=== PATIENT | male | born 1960 | race Caucasian/White ===

== ENCOUNTER 2022-10-20 10:19 | Inpatient (IN) ==
--- NOTE | 2022-10-20 10:35 | Emergency Department Note ---
Impression & Plan Atrial fibrillation with RVR, Congestive heart failure, Shortness of breath, Leg swelling, Hypokalemia, Hypomagnesemia ED Provider Note NAME: SARAH MUELLER AGE: 62 SEX: M : 1960 ARRIVES VIA: Walk-In INFORMANT: Patient, ED PROVIDER(S): Sachin Cummings MD CHIEF COMPLAINT: Shortness of breath MEDICAL DECISION MAKING: Patient presents due to concern for shortness of breath ongoing since January but worse in the last 2 months with associated lower extremity edema. IV was established blood work was obtained along with an EKG. The patient was noted to be in A-fib. Lopressor ordered along with heparin. The patient's blood work shows normal white count mild anemia hemoglobin of 13.5. Platelet count is unremarkable. Kidney function unremarkable mild hypomagnesemia and hypokalemia. These were ordered for repletion. BNP is elevated along with elevated troponin but do believe this is likely secondary to demand. Patient is likely been in A-fib for some time and is had progressively worsening symptoms. I did inform the patient the findings. I spoke with the on-call hospitalist Barbara Quiñones PA-C and the patient was admitted by Dr. Wooten. Patient was also ordered Lasix 40 IV. Bilateral lower extremity DVT Dopplers pending at the time of admission. Critical Care: I have personally spent 42 minutes of critical care time in direct management of this patient. This includes bedside care, interpretation of diagnostic studies, and testing, discussion with consultants, patient, and family members, and other require inpatient management activities. This 42 minutes is in excess of all separately billable procedures. Prior /Outside records reviewed: None Differential diagnosis: Reactive airway disease, pneumonia, pneumothorax, COPD, CHF, infections, cardiac ischemia, pulmonary embolism, musculoskeletal, gastrointestinal, as well as other pathologies. Diagnostics, as interpreted by me: ECG: A-fib with RVR, rate 120, wide QRS, possible left axis deviation left bundle branch block pattern. No obvious ST elevations noted. Cardiac monitoring: An order was placed for continuous cardiac monitoring. The monitor shows a rate of 112 with tachycardic and irregularly irregular rhythm. Patient was placed on pulse oximetry Medical decision rules: None Imaging studies: See below I informed interpreted the patient's chest x-ray which does show likely pulmonary edema HPI: Patient presents from home due to concern for shortness of breath and [place]. The patient has family history of A-fib but no prior history of any heart or lung disease. Patient states that he chews tobacco and drinks socially. No history of thyroid disease heart disease or lung disease. No non-smoker. Patient has noticed worsening lower extremity swelling and associated shortness of breath of the last 2 months. Son notes that today he seemed worse in terms of his leg swelling in addition to his shortness of breath. The patient has had a nonproductive cough for many months. No falls or trauma. The patient has noticed the likely weight gain and leg swelling but is not been taking a daily weight. Patient does not take any medications on a regular basis. Remote history of ACL procedure PAST MEDICAL HISTORY: See Below PAST SURGICAL HISTORY: See Below SOCIAL HISTORY: See Below HOME MEDICATIONS: See Below ALLERGIES: See Below VITALS: See Below PHYSICAL EXAMINATION: GENERAL: NAD, wearing a mask, non-toxic. EYE EXAM: Normal conjunctiva. PERRL, no anisocoria and EOM's grossly intact w/o pain. NECK: Supple, no nuchal rigidity, no adenopathy, non-tender. No signs of meningismus. FROM of the neck with good chin to chest and neck extension. No stridor. LUNGS: Clear to auscultation. Normal chest wall mechanics. HEART: Tachycardic and irregularly irregular. ABDOMEN: Abdomen soft, non-tender, no masses, no rebound or guarding. BACK: No CVA TTP. SKIN: No rashes and no bruising. UPPER EXTREMITIES: Upper extremities are grossly normal. LOWER EXTREMITIES: Grossly normal, 2-3+ bilateral symmetric lower extremity edema with mild erythema, no crepitus negative Homans' sign bilaterally. NEURO EXAM: A&O x3, cranial nerves II-XII grossly intact, normal speech, moves all 4 extremities. Past Med/Surg History Medical History (Updated 10/21/22 @ 17:41 by Sachin Cummings MD) No pertinent past medical history Right ACL tear Surgical History (Updated 10/21/22 @ 17:40 by Sachin Cummings MD) H/O anterior cruciate ligament surgery Social History Smoking Status: Never smoker Tobacco Type: Smokeless Tobacco (Dip or Chew) Hx Alcohol Use: Yes Alcohol type: wine Alcohol type Comment: socially Hx Substance Use: No Preferred Language: Frisian Communication Ability: Effective Computer Forensics Analyst Required: No Beliefs That Will Affect Care: None Current Living Situation: Alone Feels Safe at Home: Yes Assistive Devices: None Allergies Allergies Allergy/AdvReac Type Severity Reaction Status Date / Time No Known Allergies Allergy Verified 10/20/22 11:57 Home Meds Home Medications Medication Instructions Recorded Confirmed No Known Home Medications 10/20/22 10/20/22 Results & Data (ED) Vital Signs Vital Signs - 24 hr 10/20/22 10:22 10/20/22 10:52 Temperature 36.8 C Temperature Source Temporal Artery Scan Pulse Rate 117 H Respiratory Rate 16 Respiratory Effort / Characteristics Non-Labored Spontaneous Respiratory Depth Normal Blood Pressure 178/115 H Blood Pressure Mean 136 Pulse Oximetry 97 Oxygen Delivery Method Room Air Room Air Sepsis Recent Fever Within 48 Hours No Sepsis New/Unexplained Change in Mental Status No Sepsis Action Taken by Nursing No Action Required Home Medications Current Medication List: was personally reviewed by me Laboratory Data Attestation: I reviewed the patient's lab results. 10/20/22 11:07 10/20/22 11:07 Lab Results 10/20/22 10/20/22 10/20/22 Range/Units 11:07 11:07 11:07 WBC 6.15 (4.8-10.8) K/ul RBC 4.62 L (4.70-6.10) M/uL Hgb 13.5 L (14.0-18.0) g/dl Hct 41.2 L (42.0-52.0) % MCV 89.2 (80.0-100.0) fL MCH 29.2 (25.0-34.0) pg MCHC 32.8 (32.0-36.0) g/dL RDW Std Deviation 52.3 H (36.4-46.3) fL RDW Coeff of Naomie 16.1 H (11.5-14.5) % Plt Count 242 (130-400) K/uL MPV 9.9 (9.4-12.4) fL Immature Gran % (Auto) 1.1 % Neut % (Auto) 60.2 % Lymph % (Auto) 21.6 % Bland % (Auto) 13.7 % Eos % (Auto) 3.1 % Baso % (Auto) 0.3 % Neut # (Auto) 3.70 (1.40-6.50) K/uL Lymph # (Auto) 1.33 (1.2-3.4) K/uL Bland # (Auto) 0.84 H (0.11-0.59) K/uL Eos # (Auto) 0.19 (0-0.50) K/uL Baso # (Auto) 0.02 (0-0.2) K/uL Immature Gran # (Auto) 0.07 (0.01-0.20) K/uL PT 13.0 H (9.0-12.0) Seconds INR 1.2 H (0.9-1.1) APTT 30.3 (21.0-31.0) Seconds PTT Ratio 1.1 Sodium 140 (136-145) mmol/L Potassium 3.0 L (3.5-5.1) mmol/L Chloride 98 (98-107) mmol/L Carbon Dioxide 29 (21-32) mmol/L Anion Gap 13 H (3-11) BUN 14 (6-23) mg/dl Creatinine 0.97 (0.6-1.4) mg/dl Est Cr Clr Drug Dosing 111.3 ml/min Est GFR ( Amer) 97.3 ml/min Est GFR (Non-Af Amer) 83.9 ml/min BUN/Creatinine Ratio 14.4 (10-20) Glucose 105 H (70-99(Fasting)) mg/dl Calcium 9.0 (8.6-10.3) mg/dl Magnesium 1.6 L (1.7-2.4) mg/dl Total Bilirubin 2.8 H (0.2-1.0) mg/dl AST 27 (13-39) U/L ALT 18 (7-52) U/L Alkaline Phosphatase 111 H (34-104) U/L Troponin I High Sens 39.2 H (0-20) pg/ml B-Natriuretic Peptide (0-100) pg/ml Total Protein 6.6 (6.0-8.3) gm/dl Albumin 3.7 (3.4-5.0) gm/dl Globulin 2.9 (2.5-4.0) gm/dl Albumin/Globulin Ratio 1.3 (0.9-2) TSH (0.300-4.500) uIu/ml SARS-CoV-2, RNA, NAAT (NEGATIVE) 10/20/22 10/20/22 10/20/22 Range/Units 11:07 11:16 12:14 WBC (4.8-10.8) K/ul RBC (4.70-6.10) M/uL Hgb (14.0-18.0) g/dl Hct (42.0-52.0) % MCV (80.0-100.0) fL MCH (25.0-34.0) pg MCHC (32.0-36.0) g/dL RDW Std Deviation (36.4-46.3) fL RDW Coeff of Naomie (11.5-14.5) % Plt Count (130-400) K/uL MPV (9.4-12.4) fL Immature Gran % (Auto) % Neut % (Auto) % Lymph % (Auto) % Bland % (Auto) % Eos % (Auto) % Baso % (Auto) % Neut # (Auto) (1.40-6.50) K/uL Lymph # (Auto) (1.2-3.4) K/uL Bland # (Auto) (0.11-0.59) K/uL Eos # (Auto) (0-0.50) K/uL Baso # (Auto) (0-0.2) K/uL Immature Gran # (Auto) (0.01-0.20) K/uL PT (9.0-12.0) Seconds INR (0.9-1.1) APTT (21.0-31.0) Seconds PTT Ratio Sodium (136-145) mmol/L Potassium (3.5-5.1) mmol/L Chloride (98-107) mmol/L Carbon Dioxide (21-32) mmol/L Anion Gap (3-11) BUN (6-23) mg/dl Creatinine (0.6-1.4) mg/dl Est Cr Clr Drug Dosing ml/min Est GFR ( Amer) ml/min Est GFR (Non-Af Amer) ml/min BUN/Creatinine Ratio (10-20) Glucose (70-99(Fasting)) mg/dl Calcium (8.6-10.3) mg/dl Magnesium (1.7-2.4) mg/dl Total Bilirubin (0.2-1.0) mg/dl AST (13-39) U/L ALT (7-52) U/L Alkaline Phosphatase (34-104) U/L Troponin I High Sens (0-20) pg/ml B-Natriuretic Peptide 775 H (0-100) pg/ml Total Protein (6.0-8.3) gm/dl Albumin (3.4-5.0) gm/dl Globulin (2.5-4.0) gm/dl Albumin/Globulin Ratio (0.9-2) TSH 2.090 (0.300-4.500) uIu/ml SARS-CoV-2, RNA, NAAT NEGATIVE (NEGATIVE) Administered Medications Carvedilol (Carvedilol 3.125 Mg Tab) 3.125 mg PO BIDM [facility] Stop: 11/19/22 17:14 Last Admin: 10/21/22 16:33 Dose: 3.125 mg Documented By: Admin: 10/21/22 07:59 Dose: 3.125 mg Documented By: Admin: 10/20/22 18:15 Dose: 3.125 mg Documented By: AM Furosemide (Furosemide 40 Mg/4 Ml Vial) 80 mg IV BID17 [facility] Stop: 11/20/22 16:59 Last Admin: 10/21/22 16:34 Dose: 80 mg Documented By: YOGI Potassium Chloride (Potassium Chloride Crtab 20 Meq Tabcr) 40 meq PO QAM [facility] Stop: 11/20/22 08:59 Last Admin: 10/21/22 07:59 Dose: 40 meq Documented By: YOGI Discontinued Medications Apixaban (Apixaban 5 Mg Tablet) 10 mg PO BID [facility] Stop: 10/28/22 09:01 Last Admin: 10/21/22 17:23 Dose: 10 mg Documented By: YOGI Furosemide (Furosemide 40 Mg/4 Ml Vial) 40 mg IV ONE ONE Stop: 10/20/22 11:58 Last Admin: 10/20/22 12:25 Dose: 40 mg Documented By: KIEL Furosemide (Furosemide 40 Mg/4 Ml Vial) 40 mg IV BID17 [facility] Stop: 11/19/22 16:59 Last Admin: 10/21/22 08:00 Dose: 40 mg Documented By: Admin: 10/20/22 16:24 Dose: 40 mg Documented By: AM Heparin Sodium/Dextrose (Heparin Sodium/Dextrose) 25,000 units in 500 mls @ 37 mls/hr IV .[id number] [facility]; Protocol Stop: 11/19/22 11:14 Last Admin: 10/21/22 16:54 Dose: Not Given Documented By: Admin: 10/21/22 16:54 Dose: Not Given Documented By: Titration: 10/21/22 16:53 Dose: 0 units/hr, 0 mls/hr Documented By: YOGI Co-signed By: ASHWINI Admin: 10/21/22 01:32 Dose: 1,850 units/hr, 37 mls/hr Documented By: ROGER Co-signed By: CLAUDIA Titration: 10/21/22 01:20 Dose: 1,850 units/hr, 37 mls/hr Documented By: ROGER Co-signed By: CLAUDIA Titration: 10/20/22 19:09 Dose: 1,850 units/hr, 37 mls/hr Documented By: ROGER Co-signed By: JOSE Titration: 10/20/22 18:05 Dose: 1,850 units/hr, 37 mls/hr Documented By: JOSE Co-signed By: ÁNGEL Admin: 10/20/22 11:27 Dose: 1,750 units/hr, 35 mls/hr Documented By: LISA Co-signed By: WILFRIDO Magnesium Sulfate/Dextrose (Magnesium Sulfate / D5w) 1 gm in 100 mls @ 100 mls/hr IV NOW STA Stop: 10/20/22 12:56 Last Infusion: 10/20/22 13:27 Dose: 0 mls/hr Documented By: Admin: 10/20/22 12:25 Dose: 100 mls/hr Documented By: KIEL Magnesium Sulfate/Dextrose (Magnesium Sulfate / D5w) 1 gm in 100 mls @ 50 mls/hr IV ONE ONE Stop: 10/20/22 14:17 Last Infusion: 10/20/22 17:30 Dose: 0 mls/hr Documented By: Admin: 10/20/22 15:26 Dose: 50 mls/hr Documented By: JOSE Magnesium Sulfate/Dextrose (Magnesium Sulfate / D5w) 1 gm in 100 mls @ 50 mls/hr IV ONE ONE Stop: 10/20/22 16:30 Last Infusion: 10/20/22 19:31 Dose: 0 mls/hr Documented By: Admin: 10/20/22 17:29 Dose: 50 mls/hr Documented By: AM Magnesium Sulfate/Dextrose (Magnesium Sulfate / D5w) 1 gm in 100 mls @ 50 mls/hr IV ONE ONE Stop: 10/20/22 20:14 Last Admin: 10/20/22 18:17 Dose: Not Given Documented By: AM Metoprolol Tartrate (Metoprolol Tartrate 1 Mg/Ml Vial) 5 mg IV Q5M PRN PRN Reason: Tachycardia Stop: 11/19/22 10:45 Last Admin: 10/20/22 11:26 Dose: 5 mg Documented By: LISA Potassium Chloride (Potassium Chloride Crtab 20 Meq Tabcr) 40 meq PO NOW STA Stop: 10/20/22 11:58 Last Admin: 10/20/22 12:25 Dose: 40 meq Documented By: KIEL Potassium Chloride (Potassium Chloride Crtab 20 Meq Tabcr) 40 meq PO NOW STA Stop: 10/20/22 12:18 Last Admin: 10/20/22 12:54 Dose: 40 meq Documented By: KIEL Potassium Chloride (Potassium Chloride Crtab 20 Meq Tabcr) 40 meq PO NOW STA Stop: 10/20/22 17:57 Last Admin: 10/20/22 18:15 Dose: 40 meq Documented By: AM Spironolactone (Spironolactone 25 Mg Tab) 25 mg PO NOW ONE Stop: 10/21/22 12:36 Last Admin: 10/21/22 13:11 Dose: 25 mg Documented By: MAD Imaging Data Radiologist's Impression: Chest X-Ray 10/20/22 10:46 XR chest 1V portable CLINICAL HISTORY: Dyspnea TECHNIQUE: Single frontal radiograph of the chest was obtained. Comparison: None available at the time of this dictation. FINDINGS: No lines and tubes are seen. Cardiomegaly is noted. Prominence and cephalization of the vasculature is seen. No evidence of pleural effusion or pneumothorax. IMPRESSION: Cardiomegaly and mild pulmonary edema. ACT 112: Negative or not required by law. Electronically signed by: Reed Paz M.D. 10/20/2022 11:28 AM Venous Doppler Study 10/20/22 12:00 BILATERAL LOWER EXTREMITY VENOUS DOPPLER HISTORY: Acute pain with swelling of the lower legs swelling, sob COMPARISON STUDY: None. FINDINGS: There is normal compressibility, flow, and augmentation within the bilateral lower extremity deep venous systems. Subcutaneous edema. IMPRESSION: No DVT within the right or left lower extremity. ACT 112: Negative or not required by law. Electronically signed by: Ankur Butcher M.D. 10/20/2022 3:17 PM Discharge Plan Visit Data Chief Complaint: Shortness of Breath/Dyspnea Stated Complaint: SOB, SWOLLEN LEGS ED Provider: Sachin Cummings Discharge Problem: Atrial fibrillation with RVR, Congestive heart failure, Shortness of breath, Leg swelling, Hypokalemia, Hypomagnesemia Patient Disposition: Admitted As Inpatient Discharge Instructions Interventions: ED Discharge Assessment Last Done: 10/20/22 13:37
[2022-10-20] MEDS ORDERED: Heparin IV Adult Wt-Based Standard *NO* Bolus Protocol IV ONE (10:46)
[2022-10-20] MEDS ORDERED: METOPROLOL TARTRATE 1 MG/ML VIAL IV PRN (10:46)
[2022-10-20] MEDS: HEPARIN SODIUM/DEXTROSE 25,000 UNITS/500 ML BAG IV SCH (11:27)
--- NOTE | 2022-10-20 11:30 | XRay Report ---
XR chest 1V portable CLINICAL HISTORY: Dyspnea TECHNIQUE: Single frontal radiograph of the chest was obtained. Comparison: None available at the time of this dictation. FINDINGS: No lines and tubes are seen. Cardiomegaly is noted. Prominence and cephalization of the vasculature i s seen. No evidence of pleural effusion or pneumothorax. IMPRESSION: Cardiomegaly and mild pulmonary edema. ACT 112: Negative or not required by law. Electronically signed by: Reed Paz M.D. 10/20/2022 11:28 AM
[2022-10-20 11:31] LABS: Basophils # (auto) 0.02 K/uL (0-0.2); Basophils % (auto) 0.3 %; Eosinophils # (auto) 0.19 K/uL (0-0.50); Eosinophils % (auto) 3.1 %; Hematocrit (blood only) 41.2 % (42.0-52.0); Hemoglobin 13.5 g/dl (14.0-18.0); Immature Granulocytes # (auto) 0.07 K/uL (0.01-0.20); Immature Granulocytes % (auto) 1.1 %; Lymphocytes # (auto) 1.33 K/uL (1.2-3.4); Lymphocytes % (auto) 21.6 %; Mean Corpuscular Hemoglobin 29.2 pg (25.0-34.0); Mean Corpuscular Hgb Conc 32.8 g/dL (32.0-36.0); Mean Corpuscular Volume 89.2 fL (80.0-100.0); Mean Platelet Volume 9.9 fL (9.4-12.4); Monocytes # (auto) 0.84 K/uL (0.11-0.59); Monocytes % (auto) 13.7 %; Neutrophils % (auto) 60.2 %; Platelet Count 242 K/uL (130-400); RDW Coefficient of Variation 16.1 % (11.5-14.5); RDW Standard Deviation 52.3 fL (36.4-46.3); Red Blood Count 4.62 M/uL (4.70-6.10); White Blood Count 6.15 K/ul (4.8-10.8)
[2022-10-20 11:42] LABS: Albumin Globulin Ratio 1.3 (0.9-2); Albumin Level 3.7 gm/dl (3.4-5.0); BUN Creatinine Ratio 14.4 (10-20); Bilirubin,Total 2.8 mg/dl (0.2-1.0); Creatinine Clr Calc Pharmacy 111.3 ml/min; Est GFR (African American) 97.3 ml/min; Est GFR (Non-African American) 83.9 ml/min; Globulin 2.9 gm/dl (2.5-4.0); Magnesium 1.6 mg/dl (1.7-2.4); Total Protein 6.6 gm/dl (6.0-8.3)
[2022-10-20 11:48] LABS: Troponin I High Sensitivity 39.2 pg/ml (0-20)
[2022-10-20 11:53] LABS: INR 1.2 (0.9-1.1); Partial Thromboplastin Ratio 1.1; Partial Thromboplastin Time 30.3 Seconds (21.0-31.0)
[2022-10-20] MEDS ORDERED: MAGNESIUM SULFATE / D5W 1 GM/100 ML BAG IV STA (11:57)
[2022-10-20] MEDS ORDERED: FUROSEMIDE 40 MG/4 ML VIAL IV ONE (11:57)
[2022-10-20] MEDS ORDERED: POTASSIUM CHLORIDE CRTAB 20 MEQ TABCR PO STA ×3 (11:57→17:56)
[2022-10-20] MEDS ORDERED: MAGNESIUM SULFATE / D5W 1 GM/100 ML BAG IV ONE ×3 (12:18→18:15)
--- NOTE | 2022-10-20 12:20 | History & Physical Report ---
Date of Service October 20, 2022 Assessment & Plan (1) Atrial fibrillation with RVR: Plan: Presented w/ SOB/VILLAFANA/cough, palpitations noticed last summer but not since. Has been having associated LE swelling/weight gain (however doesn't check weights at home) and notable 3+ pitting edema to his thighs bilaterally. BNP elevation to 775 without prior known hx CHF Given Lopressor 5mg IV in ER, placed on heparin gtt CHADSVASC scoring 1, but suspect higher. BP elevation 152/108, CHF suspected. Checking lipids in AM Admit to PCU Continue Heparin gtt given above trend troponin, suspect elevation 2nd to demand ischemia from Afib w/ RVR on admission. Check ECHO to r/o underlying valvular heart disease given murmur on examination Continue with diuresis with Lasix 40mg IV BID -- dosing TBD, consideration for SGLT2 vs other pending A1c check/EF on ECHO Monitor I&O, daily weights AHA diet, 2L/fluid restriction daily Cards/CHF consults placed Mag/K replacement and will repeat labs this evening/further replacement as needed Will check TSH, anemia labs as well but suspect hgb 13.5 dilutional from volume overload state Check A1c/lipid panel in AM for risk stratification Keep mag ~2, K~4 Will need assistance getting PCP appt w/ Dr Berry sooner than January given hasn't seen provider in years Monitor labs in AM (2) HTN, goal to be determined: Plan: BP elevated in ER --> no headache/CP symptoms, no PATRICIA Diuresis as above with lasix 40mg IV BID Likely will need BB/lisinopril but will hold off given acute CHF/volume overload 2nd to afib/rvr -->> added carvedilol 3.125mg BID for additional BP control given continued elevations despite IV diuretic therapy and for HR control/CHF, echo ordered and pending urine protein level checked given significant HTN --> elevated to 2.4. will put in for nephrology consult for proteinuria (3) Leg swelling: Plan: 2nd to CHF dopplers ordered by ER provider to r/o DVT but no calf tenderness/equal bilaterally will remain on heparin gtt AC likely at d/c pending above, will need CM to boudreaux check (4) Wheezing: Plan: 2nd to volume overload state diuresis as above, mag repalcement does have chewing tobacco hx/no smoking -- rec cessation. also reported snoring at night -- may benefit from ref for sleep study outpatient as well (5) Shortness of breath: Plan: 2nd to above, diuresis as outlined NO OXYGEN REQUIREMENT/HYPOXIA Monitor status w/ diuresis (6) Hypokalemia: Plan: replacement w/ 40meq by ER provider for K 3.0 --> additional 40meq ordered given lasix 40mg IV mag replacement as below, and will repeat labs this evening/additional replacement as needed to keep K~4, Mag ~2 (7) Hypomagnesemia: Plan: 1.6, 1gm IV ordered in ER, ordered additional 1gm while in ER and will order additional 1gm monitor labs/replacement as needed (8) Elevated brain natriuretic peptide (BNP) level: Plan: 2nd to above echo/chf consult/diuresis (9) BPH (benign prostatic hyperplasia): Plan: suspected, reported increased frequency/urinating q1h at night output thus far 1800mL, last void 1L and PVR 182ml monitor output/retention and consider adding medication History of Present Illness Chief Complaint: shortness of breath, LE swelling, Afib RVR Primary Care Provider: NO PCP 62yo male taking no chronic medications presented to ER with concerns for ongoing shortness of breath since January, but worsened in the past 2 months along with lower extremity edema. Family noticed that he has been having increased leg swelling in combination with his shortness of breath and has an associated nonproductive cough for several months. On admission, EKG w/ noted Afib w RVR with rates 120bpm. Lopressor 5mg IV x 1, heparin were ordered by ER provider, and venous dopplers pending to r/o DVT given swelling. Apparently there is a family history of afib but patient without known history of such personally, but had noted palpitations starting last summer with sensation of "fluttering in the chest", but denied lightheadedness/syncopal sy mptoms. He used to be a fairly active lorena but his exercise tolerance has gone down significantly with increased swelling/shortness of breath/VILLAFANA limiting his ability to lennon/golf most recently. Son at bedside, CONSUELO w/ orthopedics Michele Jaeger. Corroborates story with patient. He does endorse his father with increased shortness of breath, worsening since around Thanksgiving time with associated nonproductive cough. Patient sleeps laying on his side, states laying flat on back causes back pain but does not require several pillows to become comfortable. He notes his pants have been fitting tighter as well but that he doesn't routinely check his weights. His swelling has progressed and now having pitting edema to his thighs. He has not seen a doctor in many years, has appointment with Dr Berry in December/January, but discussed will attempt to arrange sooner. Also discussed likely need for anticoagulation and will have boudreaux check eliquis vs xarelto, checking ECHO to evaluate for valvular heart disease as well. He is on no medications at present. No abdominal pain/diarrhea or intolerance to fatty foods and states he does try and eat healthy but that his appetite has been decreased. No hx JARED, but son does endorse he does snore. Family history: afib, DM, no sudden cardiac deaths Social history: Does drink socially, no heavy use reported. Chewing tobacco about 1/2 can every other day to a can Q2D. Rec cessation. ER Course: CXR w/ cardiomegaly and evidence for volume overload. BNP elevated to 775. Trop 39.2 on initial check, patient denies any chest pain. K 3.0, mag 1.6. Has been given Lasix 40mg IV x 1 with 40meq PO KCl. Magnesium level checked and 1.6, IV replacement ordered with 1gm thus far. ER provider started on Heparin gtt to cover for afib. Discussed admission to hospital for diuresis, monitoring on telemetry, echo, cardiology consultation/CHF clininc in follow up and getting him PCP appointment arranged sooner. TSH added to AM labs, and will continue lasix 40mg IV BID. Allergies Allergy/AdvReac Type Severity Reaction Status Date / Time No Known Allergies Allergy Verified 10/20/22 11:57 Home Medications Medication Instructions Recorded Confirmed Type No Known Home Medications 10/20/22 10/20/22 History Past Med/Surg History Medical History (Updated 10/20/22 @ 17:42 by Barbara Casper PA-C) Right ACL tear Social History (Updated 10/20/22 @ 13:01 by Barbara Casper PA-C) Smoking Status: Never smoker Tobacco Type: Smokeless Tobacco (Dip or Chew) Do You Dip or Chew Tobacco: Yes; Hx Alcohol Use: Yes Alcohol type: wine Alcohol type Comment: socially Hx Substance Use: No Preferred Language: Citizen Of [place] Communication Ability: Effective Civil Engineering Specialist Required: No Beliefs That Will Affect Care: None Current Living Situation: Alone Feels Safe at Home: Yes Safety Concerns: Feels Safe At This Time Assistive Devices: Glasses Review of Systems Review of Systems: All systems reviewed & are unremarkable except as noted in HPI & below Physical Exam Physical Exam: General: WD/WN obese male sitting up in bed, +cough, NAD, son at bedside HEENT: head normocephalic, atraumatic, +JVD Resp: diminished in the bases with expiratory wheezing throughout, no rales, on room air, easily winded, +cough CV: irregularly irregular (rates currently 90s), +murmur, ?S3, 3+bilateral pitting edema to the thighs GI: +BS, obese, distended but nontender, no guarding : no galvin MSK/Neuro: follows commands, no facial droop, no focal deficit prior scar to right knee from ACL surgery Psych: AOx3, pleasant and cooperative with examination Results & Data Results & Data Vital Signs (Past 12 Hours) Vital Signs Temp Pulse Resp BP Pulse Ox O2 Del Method 10/20/22 10:52 Room Air 10/20/22 10:22 36.8 C 117 H 16 178/115 H 97 Room Air Laboratory Results 10/20/22 10/20/22 10/20/22 Range/Units 11:16 11:07 11:07 WBC (4.8-10.8) K/ul RBC (4.70-6.10) M/uL Hgb (14.0-18.0) g/dl Hct (42.0-52.0) % MCV (80.0-100.0) fL MCH (25.0-34.0) pg MCHC (32.0-36.0) g/dL RDW Std Deviation (36.4-46.3) fL RDW Coeff of Naomie (11.5-14.5) % Plt Count (130-400) K/uL MPV (9.4-12.4) fL Immature Gran % (Auto) % Neut % (Auto) % Lymph % (Auto) % Ramsey % (Auto) % Eos % (Auto) % Baso % (Auto) % Neut # (Auto) (1.40-6.50) K/uL Lymph # (Auto) (1.2-3.4) K/uL Ramsey # (Auto) (0.11-0.59) K/uL Eos # (Auto) (0-0.50) K/uL Baso # (Auto) (0-0.2) K/uL Immature Gran # (Auto) (0.01-0.20) K/uL PT (9.0-12.0) Seconds INR (0.9-1.1) APTT (21.0-31.0) Seconds PTT Ratio Sodium 140 (136-145) mmol/L Potassium 3.0 L (3.5-5.1) mmol/L Chloride 98 (98-107) mmol/L Carbon Dioxide 29 (21-32) mmol/L Anion Gap 13 H (3-11) BUN 14 (6-23) mg/dl Creatinine 0.97 (0.6-1.4) mg/dl Est Cr Clr Drug Dosing 111.3 ml/min Est GFR ( Amer) 97.3 ml/min Est GFR (Non-Af Amer) 83.9 ml/min BUN/Creatinine Ratio 14.4 (10-20) Glucose 105 H (70-99(Fasting)) mg/dl Calcium 9.0 (8.6-10.3) mg/dl Magnesium 1.6 L (1.7-2.4) mg/dl Total Bilirubin 2.8 H (0.2-1.0) mg/dl AST 27 (13-39) U/L ALT 18 (7-52) U/L Alkaline Phosphatase 111 H (34-104) U/L Troponin I High Sens 39.2 H (0-20) pg/ml B-Natriuretic Peptide 775 H (0-100) pg/ml Total Protein 6.6 (6.0-8.3) gm/dl Albumin 3.7 (3.4-5.0) gm/dl Globulin 2.9 (2.5-4.0) gm/dl Albumin/Globulin Ratio 1.3 (0.9-2) SARS-CoV-2, RNA, NAAT NEGATIVE (NEGATIVE) 10/20/22 10/20/22 Range/Units 11:07 11:07 WBC 6.15 (4.8-10.8) K/ul RBC 4.62 L (4.70-6.10) M/uL Hgb 13.5 L (14.0-18.0) g/dl Hct 41.2 L (42.0-52.0) % MCV 89.2 (80.0-100.0) fL MCH 29.2 (25.0-34.0) pg MCHC 32.8 (32.0-36.0) g/dL RDW Std Deviation 52.3 H (36.4-46.3) fL RDW Coeff of Naomie 16.1 H (11.5-14.5) % Plt Count 242 (130-400) K/uL MPV 9.9 (9.4-12.4) fL Immature Gran % (Auto) 1.1 % Neut % (Auto) 60.2 % Lymph % (Auto) 21.6 % Ramsey % (Auto) 13.7 % Eos % (Auto) 3.1 % Baso % (Auto) 0.3 % Neut # (Auto) 3.70 (1.40-6.50) K/uL Lymph # (Auto) 1.33 (1.2-3.4) K/uL Ramsey # (Auto) 0.84 H (0.11-0.59) K/uL Eos # (Auto) 0.19 (0-0.50) K/uL Baso # (Auto) 0.02 (0-0.2) K/uL Immature Gran # (Auto) 0.07 (0.01-0.20) K/uL PT 13.0 H (9.0-12.0) Seconds INR 1.2 H (0.9-1.1) APTT 30.3 (21.0-31.0) Seconds PTT Ratio 1.1 Sodium (136-145) mmol/L Potassium (3.5-5.1) mmol/L Chloride (98-107) mmol/L Carbon Dioxide (21-32) mmol/L Anion Gap (3-11) BUN (6-23) mg/dl Creatinine (0.6-1.4) mg/dl Est Cr Clr Drug Dosing ml/min Est GFR ( Amer) ml/min Est GFR (Non-Af Amer) ml/min BUN/Creatinine Ratio (10-20) Glucose (70-99(Fasting)) mg/dl Calcium (8.6-10.3) mg/dl Magnesium (1.7-2.4) mg/dl Total Bilirubin (0.2-1.0) mg/dl AST (13-39) U/L ALT (7-52) U/L Alkaline Phosphatase (34-104) U/L Troponin I High Sens (0-20) pg/ml B-Natriuretic Peptide (0-100) pg/ml Total Protein (6.0-8.3) gm/dl Albumin (3.4-5.0) gm/dl Globulin (2.5-4.0) gm/dl Albumin/Globulin Ratio (0.9-2) SARS-CoV-2, RNA, NAAT (NEGATIVE) Diagnostic Findings Chest X-Ray 10/20/22 10:46 XR chest 1V portable CLINICAL HISTORY: Dyspnea TECHNIQUE: Single frontal radiograph of the chest was obtained. Comparison: None available at the time of this dictation. FINDINGS: No lines and tubes are seen. Cardiomegaly is noted. Prominence and cephalization of the vasculature is seen. No evidence of pleural effusion or pneumothorax. IMPRESSION: Cardiomegaly and mild pulmonary edema. ACT 112: Negative or not required by law. Electronically signed by: Reed Paz M.D. 10/20/2022 11:28 AM ECG Additional Comments: EKG w/ AFIB w/ RVR w/ LAD Supervising Physician Co-Signing Physician Notes I personally saw and examined the patient. I verified all ramirez points and agree with Barbara Casper PA-C with the following exceptions and/or additions: 62 year old male with no known medical issues but also no routine medical care presents to the ER with b/l leg swelling for a few months, intermittent palpitation episodes. Irregular and increased heart rate. Fatigue. Shortness of breath on exertion getting progressively worse since last summer. O/E HS increased rate, irregular rhythm, Chest bibasal crackles, reduced breath sounds throughout, Abdo SNT, bilateral pedal edema 2+ equal b/l pitting A/P New onset a. fib RVR - initial rate control deferred but given HTN later in the day with increased will start on carvedilol. [id number] - 2, CHF + HTN - IV heparin, TTE pending, suspect will be reduced as likely he has been in a. fib RVR for some time and will consult cardiology Acute CHF - Lasix 40mg IV, I&Os, daily weight, Low Na diet Proteinuria - suspect from uncontrolled HTN, would benefit from ACEi/ARB once rate controlled. Consult neuphrology given significant proteinuria although not nephrotic range. PG Care Time/CCT Total # of Minutes Spent Total Time Spent with Patient: Total time spent is greater than 50% in coordination of care (as documented) at patient's floor/unit and/or counseling patient: Coding Level of Care Code 64005 INT INP/OBS CARE 3/75MIN Diagnoses Atrial fibrillation with RVR I48.91 HTN, goal to be determined I10 Leg swelling M79.89 Wheezing R06.2 Shortness of breath R06.02 Hypokalemia E87.6 Hypomagnesemia E83.42 Elevated brain natriuretic peptide (BNP) level R79.89 BPH (benign prostatic hyperplasia) N40.0
[2022-10-20] MEDS ORDERED: ACETAMINOPHEN 325 MG TAB PO PRN (14:31)
[2022-10-20] MEDS ORDERED: ONDANSETRON INJ 2 MG/ML 2 ML VIAL IV PRN (14:31)
--- NOTE | 2022-10-20 15:18 | Ultrasound Report ---
BILATERAL LOWER EXTREMITY VENOUS DOPPLER HISTORY: Acute pain with swelling of the lower legs swelling, sob COMPARISON STUDY: None. FINDINGS: There is normal compressibility, flow, and augmentation within the bilateral lower extremit y deep venous systems. Subcutaneous edema. IMPRESSION: No DVT within the right or left lower extremity. ACT 112: Negative or not required by law. Electronically signed by: Ankur Butcher M.D. 10/20/2022 3:17 PM
[2022-10-20 16:24] LABS: Appearance Urine Clear (Clear); Bacteria Urine Automated Negative (Negative); Bilirubin Urine Negative (Negative); Blood Urine Negative (Negative); Cast Urine Automated 0 /lpf (0-5); Color Urine Yellow; Epithelial Cell Urine Auto 0-5 /lpf (0-5); Glucose Urine UA Negative (Negative); Ketones Urine Negative (Negative); Leukocyte Esterase Urine Negative (Negative); Nitrite Urine Negative (Negative); RBC Urine Automated 0-4 /hpf (0-4); Specific Gravity Urine 1.005 (1.000-1.030); Urobilinogen Urine Negative (Negative); WBC Urine Automated 0 /hpf (0-5); pH Urine 7.5 (4.5-7.5)
[2022-10-20] MEDS: FUROSEMIDE 40 MG/4 ML VIAL IV SCH (16:24)
[2022-10-20 16:40] LABS: Protein Urine 1+ (Negative)
[2022-10-20 16:54] LABS: Total Protein Urine Random 41.6 mg/dl (0-11.9)
[2022-10-20 17:00] LABS: Protein Creatinine Ratio Urine 2.4 (0-0.2)
[2022-10-20 17:53] LABS: BUN Creatinine Ratio 13.9 (10-20); Calcium 8.9 mg/dl (8.6-10.3); Creatinine Clr Calc Pharmacy 111.7 ml/min; Est GFR (African American) 92.6 ml/min; Est GFR (Non-African American) 79.9 ml/min; Magnesium 1.8 mg/dl (1.7-2.4); Potassium 3.3 mmol/L (3.5-5.1)
[2022-10-20 17:58] LABS: Troponin I High Sensitivity 41.7 pg/ml (0-20)
--- NOTE | 2022-10-20 17:58 | Communication Note ---
Date of Service: October 20, 2022 Repeat labs this afternoon --> K 3.3, mag 1.8 (3rd bag currently infusing) --> additional 40meq PO potassium x 1 now and will schedule in AM. May need BID dosing while on IV diuretics.
[2022-10-20 18:04] LABS: Partial Thromboplastin Ratio 1.5; Partial Thromboplastin Time 42.3 Seconds (21.0-31.0)
[2022-10-20] MEDS: carvediloL 3.125 MG TAB PO SCH (18:15)
[2022-10-21 00:53] LABS: Partial Thromboplastin Ratio 1.8
[2022-10-21 00:55] LABS: Partial Thromboplastin Time 50.6 Seconds (21.0-31.0)
[2022-10-21] MEDS: HEPARIN SODIUM/DEXTROSE 25,000 UNITS/500 ML BAG IV SCH ×2 (01:32→16:54)
--- NOTE | 2022-10-21 07:38 | Hospitalist Progress Note ---
Date of Service October 21, 2022 Assessment & Plan (1) Congestive heart failure: (2) Atrial fibrillation with RVR: (3) Elevated troponin: (4) Hypomagnesemia: (5) Hypokalemia: (6) Prediabetes: Plan ASCVD risk score 8.0. Recommend medium to high statin Atrial fibrillation with RVR Rate controlled with beta-alfonso. Carvedilol 3.125 mg twice daily. We will start on anticoagulation therapy for stroke risk reduction according to patient's Addison vas score. Started on Eliquis 5 mg twice daily. A-fib most likely contributing to patient's acute exacerbation of congestive heart failure. Recommend low-sodium diets. Cardiology consulted, appreciate recommendations. Continue with telemetry. Acute on chronic congestive heart failure with reduced ejection fraction Presented with shortness of breath, orthopnea, lower extremity edema, and weight gain. Chest x-ray showed cardiomegaly and mild pulmonary edema. BNP elevated at 775. TSH normal. Due to lower extremity edema, was ordered venous Doppler of the lower extremity which was negative at time of admission. Echo performed today showed an EF of 30 to 35% with global hypokinesis and mild left ventricular hypertrophy. Started on Entresto low-dose and spironolactone 25 mg once a day. Daily weights and strict I's and O's. Heart failure program at discharge. Patient will need an outpatient sleep study due to most likely having obstructive sleep apnea. Continue diuresis with Lasix 80 mg IV twice daily. Elevated troponin Patient is currently not having any chest pain. Likely secondary to heart failure and A-fib with RVR. Hypokalemia Potassium of 3.0 on admission Repleted, continue to monitor. May need to be on potassium supplements daily as outpatient due to adding on spironolactone. Hypomagnesia Magnesium of 1.6 at time of admission. Repleted, continue to monitor. Prediabetes Hemoglobin A1c of 5.9 on 10/21/2022 Recommend diet management at this time. Should follow-up as an outpatient with PCP. Fluids: None Nutrition: Heart healthy and low-sodium with fluid restriction of 2000 mL DVT ppx: Eliquis Consults: Cardiology PT/OT: Yes Case management: Heart failure program Dispo: PCU/telemetry Thank you for allowing me to participate in the care of your patient. -Dr. Reid Hernandez PGY1 Admission and Anticipated Discharge Date Admission Date: October 20, 2022 Supervising Physician Co-Signing Physician Notes I personally examined the patient and verified all ramirez points of history and exam, discussed case, and agree with decision making with Dr Hernandez Feeling better and breathing feeling better. Updated extensively with patient, as well as [id number] who is a PA working in cardiology, answered all questions the best my ability and to their satisfaction. Vitals noted, in general he is awake and alert pleasant no distress. HEENT normocephalic atraumatic mucous membranes moist. Breathing unlabored no accessory muscle use good effort. Skin shows no rashes no pallor or icterus. Neuro without focal deficits. Echocardiogram, basic metabolic panel, iron studies, A1c, troponin noted. Acute HFrEFhis cascade of events is likely that undiagnosed sleep apnea led to unknown atrial fibrillationand then persistent A-fib/persistent tachycardia led to myocardial fatigue and rate related CHF, leading to his current decompensation. Control his rate, diuresis, anticoagulated in accordance with his [id number], as an outpatient set up sleep study. Otherwise as above. Subjective Patient was seen bedside this morning. States that he is doing well and that his symptoms have improved. His breathing is doing better. Currently on room air. Review of Systems Review of Systems: All systems reviewed & are unremarkable except as noted in Subjective Physical Exam Constitutional: WD/WN, vitals as above Eyes: PERRL, conjunctivae normal, anicteric sclerae Respiratory: normal respiratory effort, lungs clear to auscultation Cardiovascular: Rate/Rhythm: + irregularly irregular Extremities: + edema (Lower extremity edema) Gastrointestinal (Abdomen): normal bowel sounds, soft, nontender, no hepatosplenomegaly Skin: no rashes, warm and dry Neurologic: patellar DTR's 2+ bilat, sensation intact Psychiatric: A+Ox3, euthymic affect Results & Data Results & Data Vital Signs (Past 12 Hours) Vital Signs Temp Pulse Pulse Resp BP Pulse Ox O2 Del Method 10/21/22 06:37 99 H 127/90 10/21/22 03:50 172/115 H 10/21/22 03:48 36.6 C 94 H 24 145/125 H 91 Room Air 10/20/22 23:50 104 H 10/20/22 22:36 36.4 C L 112 H 22 154/114 H 94 Room Air 10/20/22 20:00 Room Air
[2022-10-21 07:48] LABS: Hematocrit (blood only) 38.8 % (42.0-52.0); Hemoglobin 12.8 g/dl (14.0-18.0); Mean Corpuscular Hemoglobin 29.3 pg (25.0-34.0); Mean Corpuscular Volume 88.8 fL (80.0-100.0); Mean Platelet Volume 9.8 fL (9.4-12.4); Platelet Count 235 K/uL (130-400); RDW Coefficient of Variation 16.2 % (11.5-14.5); RDW Standard Deviation 52.2 fL (36.4-46.3); Red Blood Count 4.37 M/uL (4.70-6.10); White Blood Count 5.41 K/ul (4.8-10.8)
[2022-10-21] MEDS: carvediloL 3.125 MG TAB PO SCH ×2 (07:59→16:33)
[2022-10-21] MEDS: FUROSEMIDE 40 MG/4 ML VIAL IV SCH ×2 (08:00→16:34)
[2022-10-21 08:02] LABS: Albumin Globulin Ratio 1.3 (0.9-2); Albumin Level 3.4 gm/dl (3.4-5.0); BUN Creatinine Ratio 13.3 (10-20); Bilirubin,Total 2.8 mg/dl (0.2-1.0); Calcium 8.7 mg/dl (8.6-10.3); Chol HDL Ratio 3.6 (0-5); Creatinine Clr Calc Pharmacy 114.4 ml/min; Est GFR (African American) 96.1 ml/min; Est GFR (Non-African American) 82.9 ml/min; Globulin 2.7 gm/dl (2.5-4.0); Magnesium 1.8 mg/dl (1.7-2.4); Potassium 3.2 mmol/L (3.5-5.1); Total Protein 6.1 gm/dl (6.0-8.3)
[2022-10-21 08:13] LABS: Estimated Average Glucose 123 mg/dl; Hemoglobin A1C 5.9 % (4.5-5.6)
[2022-10-21 08:25] LABS: Partial Thromboplastin Ratio 1.8
[2022-10-21 08:33] LABS: Partial Thromboplastin Time 48.4 Seconds (21.0-31.0)
[2022-10-21] MEDS ORDERED: POTASSIUM CHLORIDE CRTAB 20 MEQ TABCR PO SCH (09:00)
[2022-10-21] MEDS ORDERED: SPIRONOLACTONE 25 MG TAB PO ONE (12:35)
--- NOTE | 2022-10-21 14:59 | Cardiology Consultation ---
Date of Consultation October 21, 2022 Assessment & Plan (1) Acute HFrEF (heart failure with reduced ejection fraction): (2) Atrial fibrillation with RVR: (3) Cardiomyopathy: (4) Pulmonary hypertension: (5) Hypokalemia: (6) Elevated troponin: Plan ASSESSMENT/PLAN: 1. Acute heart failure with reduced EF: Discussed the diagnosis. Significantly hypervolemic. Class III symptoms. Agree with current loop diuretic. Diuresing well. Monitor renal function and electrolytes closely and replete electrolytes as necessary. Start spironolactone 25 mg daily which should help with his hypokalemia as well. Start Entresto low-dose. Would not further titrate carvedilol until further diuresis. Low-sodium diet, less than 2000 mg daily. Check daily weights at home. Daily weights here. Strict I's and O's. Discussed and recommended heart failure program and he is agreeable. 2. Atrial fibrillation: Likely playing a role in his heart failure and cardiomyopathy. Heart rate better controlled on low-dose beta-alfonso. Will titrate later. Agree with anticoagulation therapy for stroke risk reduction. Discussed treatment strategies and the diagnosis in general. He would like to avoid more aggressive measures at this time. Depending on clinical course, cardioverting to sinus rhythm may improve heart failure symptoms. He states that he will consider this as an outpatient if necessary. 3. Cardiomyopathy: Possibly tachycardia induced, but cannot exclude ischemic heart disease. He prefers medical therapy for now. No urgent indication for cardiac catheterization. Cardiac cath was considered an discussed. He would like to to pursue medical therapy and then can reconsider ischemic evaluation if LV systolic function does not improve. Once optimized on medical therapy, if no significant improvement in LV systolic function, could qualify for ICD for primary prevention in the future. 4. Pulm hypertension: Likely due to hypervolemic state. Will reevaluate in the future after diuresis. 5. Hypokalemia: Replete electrolytes. Will defer to primary hospitalist service. Adding spironolactone which should help spare potassium. 6. Elevated troponin: Likely due to decompensated heart failure in the setting of atrial fibrillation with rapid ventricular response. No angina. 7. Disposition: Cardiology will continue to follow. He states that he will not likely remain hospitalized more than a couple of days. He prefers to do much of the treatment as an outpatient. It was recommended that he may require more prolonged hospital stay given his significant hypervolemic state. We will continue to discuss this going forward. Heart failure program for close follow- up whenever discharged. His presentation and plan discussed with his [id number], Alison Jaeger (cardiology PA-C) as per his request. Any questions were answered. Highly complex medical issues. Thank you for allowing me to participate in the care of your patient. Please call for any other questions or concerns. Sincerely, Javier Howell M.D. History of Present Illness Reason for Consultation: Afib with RVR, CHF Requesting Physician: Barbara Casper Attending Physician: Vikas Seth, History of Present Illness Mr. Jaeger is a very pleasant 62-year-old gentleman with no significant past medical history. He was admitted on 10/20/2022 after presenting with increased dyspnea on exertion and edema. He was found to be in atrial fibrillation with rapid ventricular response and felt to be in heart failure. He had not seen a medical provider for at least 20 years and the last one that he saw was orthopedic surgery for a right knee surgery. In May 2022, he developed cough occasionally productive of clear sputum. In July 2022 he noted decreased stamina, increased dyspnea on exertion and increased lower extremity swelling. He recalls having palpitations in the summer 2021 but then later played golf that day and felt fine. Despite worsening edema and dyspnea, he did not seek medical attention until the day of presentation. He denies chest pain, paroxysmal nocturnal dyspnea, orthopnea, syncope, near syncope, or further palpitations. He was given intravenous Lasix and already is feeling better in regards to his lower extremity edema. He does not weigh himself at home but notes that his clothes have been fitting tighter, and therefore he assumed that he has gained significant weight. He maintains a low-sodium diet and avoids processed foods in general. He had a hemangioma removed from his right thigh in the past and has been left with a scar and several varicosities. Review of systems: As above. Review of systems otherwise negative/unremarkable. Family history: No known premature CAD. Mother and brother had atrial fibrillation. Social history: He denies smoking or drug abuse. Occasional alcohol. He is . He lives alone. He has 2 children. A son is a physician pastrycook's assistant for [employer] orth[employer]. His [id number] is Alison JuniorFito Jaeger, a cardiology PA with [employer]. He was alone in his hospital room. Allergies Allergy/AdvReac Type Severity Reaction Status Date / Time No Known Allergies Allergy Verified 10/20/22 11:57 Home Medications Medication Instructions Recorded Confirmed Type No Known Home Medications 10/20/22 10/20/22 History Patient History Medical History (Updated 10/21/22 @ 15:29 by Terence Howell MD) Right ACL tear Social History (Updated 10/20/22 @ 13:01 by Barbara Casper PADonovanC) Smoking Status: Never smoker Tobacco Type: Smokeless Tobacco (Dip or Chew) Do You Dip or Chew Tobacco: Yes; Hx Alcohol Use: Yes Alcohol type: wine Alcohol type Comment: socially Hx Substance Use: No Preferred Language: Syriac Communication Ability: Effective 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 Alert and oriented. HEENT: Anicteric sclera. Neck: Elevated JVD. No bruits. Normal carotid upstrokes bilaterally. Cardiac: No ventricular heave. Irregularly irregular. Normal S1-S2. No murmurs, rubs, or gallops. Pulmonary: Clear to auscultation bilaterally without wheezes, rales, or rhonchi. Abdomen: Soft, nontender, nondistended, with normoactive bowel sounds. No bruits noted. Extremities: 2+ radial pulses bilaterally. 2+ posterior tibialis pulses bilaterally. 4+ bilateral lower extremity edema to knees and then 2+ to above the hips. No cyanosis. Right thigh with scar and varicosities (chronic s/p hemangioma resection). Psychiatric: Affect appears appropriate. Results & Data Vital Signs (Past 12 Hours) Vital Signs Temp Pulse Pulse Resp BP Pulse Ox O2 Del Method 10/21/22 11:00 37.0 C 86 20 114/114 H 96 Room Air 10/21/22 07:30 36.5 C 70 22 118/62 97 Room Air 10/21/22 08:49 Room Air 10/21/22 08:00 98 H 10/21/22 06:37 99 H 127/90 10/21/22 03:50 172/115 H 10/21/22 03:48 36.6 C 94 H 24 145/125 H 91 Room Air Laboratory Results Laboratory Results - last 24 hr 10/20/22 10/20/22 10/20/22 15:44 15:44 17:20 WBC RBC Hgb Hct MCV MCH MCHC RDW Std Deviation RDW Coeff of Naomie Plt Count MPV APTT 42.3 H PTT Ratio 1.5 Sodium Potassium Chloride Carbon Dioxide Anion Gap BUN Creatinine Est Cr Clr Drug Dosing Est GFR ( Amer) Est GFR (Non-Af Amer) BUN/Creatinine Ratio Glucose Estimat Average Glucose Hemoglobin A1c Calcium Magnesium Iron TIBC Unsaturated IBC Transferrin % Sat Ferritin Total Bilirubin AST ALT Alkaline Phosphatase Troponin I High Sens Total Protein Albumin Globulin Albumin/Globulin Ratio Triglycerides Cholesterol LDL Cholesterol, Calc VLDL Cholesterol, Calc HDL Cholesterol Cholesterol/HDL Ratio Urine Color Yellow Urine Appearance Clear Urine pH 7.5 Ur Specific [place] 1.005 Urine Protein 1+ H Urine Glucose (UA) Negative Urine Ketones Negative Urine Blood Negative Urine Nitrite Negative Urine Bilirubin Negative Urine Urobilinogen Negative Ur Leukocyte Esterase Negative Urine WBC (Auto) 0 Urine RBC (Auto) 0-4 U Hyaline Cast (Auto) 0 U Epithel Cells (Auto) 0-5 Urine Bacteria (Auto) Negative Ur Random Creatinine 17.0 U Random Total Protein 41.6 H Protein/Creatinin Ratio 2.4 H 10/20/22 10/20/22 10/20/22 17:20 17:20 19:00 WBC RBC Hgb Hct MCV MCH MCHC RDW Std Deviation RDW Coeff of Naomie Plt Count MPV APTT PTT Ratio Sodium 141 Potassium 3.3 L Chloride 101 Carbon Dioxide 27 Anion Gap 13 H BUN 14 Creatinine 1.01 Est Cr Clr Drug Dosing 111.7 Est GFR ( Amer) 92.6 Est GFR (Non-Af Amer) 79.9 BUN/Creatinine Ratio 13.9 Glucose 128 H Estimat Average Glucose Hemoglobin A1c Calcium 8.9 Magnesium 1.8 Cancelled Iron TIBC Unsaturated IBC Transferrin % Sat Ferritin Total Bilirubin AST ALT Alkaline Phosphatase Troponin I High Sens Cancelled 41.7 H Total Protein Albumin Globulin Albumin/Globulin Ratio Triglycerides Cholesterol LDL Cholesterol, Calc VLDL Cholesterol, Calc HDL Cholesterol Cholesterol/HDL Ratio Urine Color Urine Appearance Urine pH Ur Specific [place] Urine Protein Urine Glucose (UA) Urine Ketones Urine Blood Urine Nitrite Urine Bilirubin Urine Urobilinogen Ur Leukocyte Esterase Urine WBC (Auto) Urine RBC (Auto) U Hyaline Cast (Auto) U Epithel Cells (Auto) Urine Bacteria (Auto) Ur Random Creatinine U Random Total Protein Protein/Creatinin Ratio 10/20/22 10/20/22 10/21/22 22:56 22:59 07:15 WBC 5.41 RBC 4.37 L Hgb 12.8 L Hct 38.8 L MCV 88.8 MCH 29.3 MCHC 33.0 RDW Std Deviation 52.2 H RDW Coeff of Naomie 16.2 H Plt Count 235 MPV 9.8 APTT 50.6 H* PTT Ratio 1.8 Sodium Potassium Chloride Carbon Dioxide Anion Gap BUN Creatinine Est Cr Clr Drug Dosing Est GFR ( Amer) Est GFR (Non-Af Amer) BUN/Creatinine Ratio Glucose Estimat Average Glucose Hemoglobin A1c Calcium Magnesium Iron TIBC Unsaturated IBC Transferrin % Sat Ferritin Total Bilirubin AST ALT Alkaline Phosphatase Troponin I High Sens 43.3 H Total Protein Albumin Globulin Albumin/Globulin Ratio Triglycerides Cholesterol LDL Cholesterol, Calc VLDL Cholesterol, Calc HDL Cholesterol Cholesterol/HDL Ratio Urine Color Urine Appearance Urine pH Ur Specific [place] Urine Protein Urine Glucose (UA) Urine Ketones Urine Blood Urine Nitrite Urine Bilirubin Urine Urobilinogen Ur Leukocyte Esterase Urine WBC (Auto) Urine RBC (Auto) U Hyaline Cast (Auto) U Epithel Cells (Auto) Urine Bacteria (Auto) Ur Random Creatinine U Random Total Protein Protein/Creatinin Ratio 10/21/22 10/21/22 10/21/22 07:15 07:15 07:15 WBC RBC Hgb Hct MCV MCH MCHC RDW Std Deviation RDW Coeff of Naomie Plt Count MPV APTT 48.4 H* PTT Ratio 1.8 Sodium 141 Potassium 3.2 L Chloride 100 Carbon Dioxide 31 Anion Gap 10 BUN 13 Creatinine 0.98 Est Cr Clr Drug Dosing 114.4 Est GFR ( Amer) 96.1 Est GFR (Non-Af Amer) 82.9 BUN/Creatinine Ratio 13.3 Glucose 105 H Estimat Average Glucose 123 Hemoglobin A1c 5.9 H Calcium 8.7 Magnesium 1.8 Iron 37 TIBC 349 Unsaturated IBC 312 Transferrin % Sat 11 L Ferritin 55.0 Total Bilirubin 2.8 H AST 23 ALT 16 Alkaline Phosphatase 97 Troponin I High Sens Total Protein 6.1 Albumin 3.4 Globulin 2.7 Albumin/Globulin Ratio 1.3 Triglycerides 58 Cholesterol 133 LDL Cholesterol, Calc 84 VLDL Cholesterol, Calc 12 HDL Cholesterol 37 Cholesterol/HDL Ratio 3.6 Urine Color Urine Appearance Urine pH Ur Specific [place] Urine Protein Urine Glucose (UA) Urine Ketones Urine Blood Urine Nitrite Urine Bilirubin Urine Urobilinogen Ur Leukocyte Esterase Urine WBC (Auto) Urine RBC (Auto) U Hyaline Cast (Auto) U Epithel Cells (Auto) Urine Bacteria (Auto) Ur Random Creatinine U Random Total Protein Protein/Creatinin Ratio Diagnostic Findings Echo 10/21/2022: 1. Moderately dilated left ventricle with moderately reduced systolic function. EF 30-35%. Global hypokinesis. Mild left ventricular hypertrophy. 2. Right ventricle was not well visualized but appears dilated with moderate to severely reduced systolic function. 3. Severe left atrial dilation. 4. Mild right atrial dilation. 5. Mild mitral regurgitation. 6. Moderate pulmonary hypertension. Estimated RVSP 53 mmHg. 7. Technically difficult study, enhanced with IV Definity. 8. Atrial fibrillation. 9. No prior study available for comparison. ECGs personally reviewed: ECG 10/20/2022 at 10:30 AM: A-fib RVR 120 bpm. IVCB. ECG 10/21/2022 at 5:45 AM: A-fib RVR 103 bpm. IVCB. Septal infarct. Nonspecific T wave abnormality. Telemetry personally reviewed: A-fib with heart rates of 90s to 100s this morning. Labs reviewed and notable for elevated BNP, hypokalemia, normal renal function, mild anemia. High-sensitivity troponin peak thus far 43. Lower extremity venous Doppler 10/20/2022: No DVT bilateral lower extremities. Chest x-ray 10/20/2022: Mild pulmonary edema per radiology. Chest x-ray image personally reviewed: Vascular congestion noted. Cardiomegaly. Medications Administered Current Inpatient Medications Acetaminophen (Acetaminophen 325 Mg Tab) 650 mg PO Q4H PRN PRN Reason: Pain or Fever Stop: 11/19/22 14:30 Carvedilol (Carvedilol 3.125 Mg Tab) 3.125 mg PO BIDM [facility] Stop: 11/19/22 17:14 Last Admin: 10/21/22 07:59 Dose: 3.125 mg Furosemide (Furosemide 40 Mg/4 Ml Vial) 40 mg IV BID17 [facility] Stop: 11/19/22 16:59 Last Admin: 10/21/22 08:00 Dose: 40 mg Heparin Sodium/Dextrose (Heparin Sodium/Dextrose) 25,000 units in 500 mls @ 37 mls/hr IV .[id number] [facility]; Protocol Stop: 11/19/22 11:14 Last Admin: 10/21/22 01:32 Dose: 1,850 units/hr, 37 mls/hr Ondansetron HCl (Ondansetron Inj 2 Mg/Ml 2 Ml Vial) 4 mg IV Q6H PRN PRN Reason: Nausea Stop: 11/19/22 14:30 Potassium Chloride (Potassium Chloride Crtab 20 Meq Tabcr) [facility] [place] Stop: 11/20/22 08:59 Last Admin: 10/21/22 07:59 Dose: 40 meq Spironolactone (Spironolactone 25 Mg Tab) 25 mg PO [facility] Stop: 11/21/22 08:59 PG Care Time/CCT Total # of Minutes Spent Total Time Spent with Patient: Total time spent is greater than 50% in coordination of care (as documented) at patient's floor/unit and/or counseling patient: Coding Level of Care Code 73896 IN/OBS CONSULT LVL 5,80M Diagnoses Acute HFrEF (heart failure with reduced ejection fraction) I50.21 Atrial fibrillation with RVR I48.91 Cardiomyopathy I42.9 Pulmonary hypertension I27.20 Hypokalemia E87.6 Elevated troponin R77.8
--- NOTE | 2022-10-21 15:18 | XCELERA ---
[id number]
[2022-10-21] MEDS ORDERED: APIXABAN 5 MG TABLET PO SCH (17:00)
[2022-10-21 17:21] LABS: BUN Creatinine Ratio 14.2 (10-20); Calcium 9.2 mg/dl (8.6-10.3); Creatinine Clr Calc Pharmacy 93.5 ml/min; Est GFR (African American) 75.2 ml/min; Est GFR (Non-African American) 64.9 ml/min; Potassium 3.4 mmol/L (3.5-5.1)
[2022-10-21] MEDS ORDERED: POTASSIUM CHLORIDE CRTAB 20 MEQ TABCR PO ONE (18:14)
--- NOTE | 2022-10-21 19:14 | Billing Data ---
Date of Service October 21, 2022 Coding Level of Care Code 60318 SUB INP/OBS CARE MIN
[2022-10-21] MEDS ORDERED: VALSARTAN/SACUBITRIL 26/24MG TAB PO SCH (21:00)
--- NOTE | 2022-10-22 00:07 | Electrocardiogram Report ---
Test Reason : Blood Pressure : / mmHG Vent. Rate : 120 BPM Atrial Rate : 125 BPM P-R Int : 000 ms QRS Dur : 130 ms QT Int : 356 ms P-R-T Axes : 000 -61 024 degrees QTc Int : 503 ms Atrial fibrillation with rapid ventricular response Left axis deviation Non-specific intra-ventricular conduction block Possible Septal infarct Abnormal ECG No previous ECGs available Confirmed by Terence Howell ([id number]) on 10/22/2022 12:06:56 AM Referred By: Confirmed By:Terence Howell
--- NOTE | 2022-10-22 06:01 | Electrocardiogram Report ---
Test Reason : Blood Pressure : / mmHG Vent. Rate : 103 BPM Atrial Rate : 113 BPM P-R Int : 000 ms QRS Dur : 126 ms QT Int : 420 ms P-R-T Axes : 000 -18 -14 degrees QTc Int : 550 ms Atrial fibrillation with rapid ventricular response with premature ventricular or aberrantly conducte d complexes Non-specific intra-ventricular conduction block Cannot rule out Septal infarct , age undetermined Poor R wave progression, consider anterior MS vs. lead placement vs. LVH Nonspecific T wave abnormality Abnormal ECG When compared with ECG of 20-OCT-2022 10:30, QRS axis Shifted right Nonspecific T wave abnormality now evident in Anterior leads Confirmed by Terence Howell ([id number]) on 10/22/2022 6:01:10 AM Referred By: REFERRED SELF Confirmed By:Terence Howell
--- NOTE | 2022-10-22 06:44 | Hospitalist Progress Note ---
Date of Service October 22, 2022 Assessment & Plan (1) Congestive heart failure: (2) Atrial fibrillation with RVR: (3) Elevated troponin: (4) Hypomagnesemia: (5) Hypokalemia: (6) Prediabetes: Plan Atrial fibrillation with RVR Rate controlled with beta-alfonso. Carvedilol 6.25mg BID. We will start on anticoagulation therapy for stroke risk reduction according to patient's Addison vas score. Started on Eliquis 5 mg twice daily. A-fib most likely contributing to patient's acute exacerbation of congestive heart failure. Recommend low-sodium diets. Cardiology consulted, appreciate recommendations. Continue with telemetry. Acute on chronic congestive heart failure with reduced ejection fraction Presented with shortness of breath, orthopnea, lower extremity edema, and weight gain. Chest x-ray showed cardiomegaly and mild pulmonary edema. BNP elevated at 775. TSH normal. Due to lower extremity edema, was ordered venous Doppler of the lower extremity which was negative at time of admission. Echo performed today showed an EF of 30 to 35% with global hypokinesis and mild left ventricular hypertrophy. Started on Entresto low-dose and spironolactone 25 mg once a day. Daily weights and strict I's and O's. Heart failure program at discharge. Patient will need an outpatient sleep study due to most likely having obstructive sleep apnea. We will try to set up at this time prior to discharge. Continue diuresis with Lasix 80 mg IV twice daily. Elevated troponin Patient is currently not having any chest pain. Likely secondary to heart failure and A-fib with RVR. Hypokalemia Potassium of 3.0 on admission Repleted, continue to monitor. Start potassium chloride 40 meq twice daily. Hypomagnesia Magnesium of 1.6 at time of admission. Repleted, continue to monitor. Start mag oxide 400 mg twice daily. Prediabetes Hemoglobin A1c of 5.9 on 10/21/2022 Recommend diet management at this time. Should follow-up as an outpatient with PCP. Fluids: None Nutrition: Heart healthy and low-sodium with fluid restriction of 2000 mL DVT ppx: Eliquis Consults: Cardiology PT/OT: Yes Case management: Heart failure program Dispo: PCU/telemetry Thank you for allowing me to participate in the care of your patient. -Dr. Reid Hernandez PGY1 Admission and Anticipated Discharge Date Admission Date: October 20, 2022 Supervising Physician Co-Signing Physician Notes I personally examined the patient and verified all ramirez points of history and exam, discussed case, and agree with decision making with Dr Hernandez Feels pretty good overall. Breathing good. Heart rates still around 100. Vitals noted, in general he is awake and alert pleasant no distress. HEENT normocephalic atraumatic mucous membranes moist. Breathing unlabored no accessory muscle use good effort. Skin shows no rashes no pallor or icterus. Neuro without focal deficits. BMP, CBC noted. Acute HFrEFhis cascade of events is likely that undiagnosed sleep apnea led to unknown atrial fibrillationand then persistent A-fib/persistent tachycardia led to myocardial fatigue and rate related CHF, leading to his current decompensation. Control his rate (increase Coreg today), diuresis, cardiology added Entresto today, anticoagulated in accordance with his [id number], as an outpatient set up sleep study (nurse navigator working on this). Otherwise as above. Subjective Patient was seen bedside this morning. He states that he is feeling better. He feels good. Denies any SOB or CP. Review of Systems Review of Systems: All systems reviewed & are unremarkable except as noted in Subjective Physical Exam Constitutional: WD/WN, vitals as above Eyes: PERRL, conjunctivae normal, anicteric sclerae Respiratory: normal respiratory effort, lungs clear to auscultation Cardiovascular: Rate/Rhythm: + irregularly irregular Extremities: + edema (Lower extremity edema) Gastrointestinal (Abdomen): normal bowel sounds, soft, nontender, no hepatosplenomegaly Skin: no rashes, warm and dry Neurologic: patellar DTR's 2+ bilat, sensation intact Psychiatric: A+Ox3, euthymic affect Results & Data Results & Data Vital Signs (Past 12 Hours) Vital Signs Temp Pulse Resp BP Pulse Ox O2 Del Method 10/22/22 04:25 36.8 C 96 H 16 111/76 91 Room Air 10/21/22 22:44 36.6 C 76 18 140/101 H 97 Room Air 10/21/22 19:56 36.6 C 90 20 125/81 92 Room Air Resident Activity Tracking Resident Involvement: Resident Care Provided Care Provided: Adult Hospital Medicine (1) Congestive heart failure Heart failure chronicity: acute Heart failure type: unspecified Qualified Code(s): I50.9 - Heart failure, unspecified
[2022-10-22 08:18] LABS: Basophils # (auto) 0.02 K/uL (0-0.2); Basophils % (auto) 0.4 %; Eosinophils # (auto) 0.24 K/uL (0-0.50); Eosinophils % (auto) 4.6 %; Hematocrit (blood only) 38.2 % (42.0-52.0); Immature Granulocytes # (auto) 0.05 K/uL (0.01-0.20); Immature Granulocytes % (auto) 0.9 %; Lymphocytes # (auto) 1.51 K/uL (1.2-3.4); Lymphocytes % (auto) 28.7 %; Mean Corpuscular Hemoglobin 29.4 pg (25.0-34.0); Mean Corpuscular Volume 86.4 fL (80.0-100.0); Mean Platelet Volume 9.8 fL (9.4-12.4); Monocytes # (auto) 0.72 K/uL (0.11-0.59); Monocytes % (auto) 13.7 %; Neutrophils # (auto) 2.73 K/uL (1.40-6.50); Neutrophils % (auto) 51.7 %; Platelet Count 233 K/uL (130-400); RDW Coefficient of Variation 16.4 % (11.5-14.5); Red Blood Count 4.42 M/uL (4.70-6.10); White Blood Count 5.27 K/ul (4.8-10.8)
[2022-10-22 08:29] LABS: BUN Creatinine Ratio 14.3 (10-20); Calcium 9.1 mg/dl (8.6-10.3); Creatinine Clr Calc Pharmacy 94.1 ml/min; Est GFR (Non-African American) 65.5 ml/min; Magnesium 1.7 mg/dl (1.7-2.4); Potassium 3.3 mmol/L (3.5-5.1)
[2022-10-22] MEDS: VALSARTAN/SACUBITRIL 26/24MG TAB PO SCH ×2 (09:13→19:41)
[2022-10-22] MEDS: SPIRONOLACTONE 25 MG TAB PO SCH (09:14)
[2022-10-22] MEDS: POTASSIUM CHLORIDE CRTAB 20 MEQ TABCR PO SCH ×2 (09:14→19:41)
[2022-10-22] MEDS: APIXABAN 5 MG TABLET PO SCH ×2 (09:15→19:41)
[2022-10-22] MEDS: carvediloL 6.25 MG TAB PO SCH ×2 (09:15→17:10)
[2022-10-22] MEDS: MAGNESIUM OXIDE 400 MG TAB PO SCH ×2 (09:15→19:41)
--- NOTE | 2022-10-22 09:40 | Cardiology Progress Note ---
Date of Service October 22, 2022 Assessment & Plan (1) Acute HFrEF (heart failure with reduced ejection fraction): (2) Atrial fibrillation with RVR: (3) Cardiomyopathy: (4) Pulmonary hypertension: (5) Hypokalemia: (6) Elevated troponin: Plan ASSESSMENT/PLAN: 1. Acute heart failure with reduced EF: Significantly hypervolemic. Class III symptoms. Continue Lasix 80 mg IV twice daily. Diuresis yesterday was not as significant as would hope, and less than the first day. This will be the first day of 80 mg IV twice daily of Lasix. Discussed with nursing staff. If up-to-date fluid balance this afternoon is not on track for 1 to 2 L negative or more, will consider a dose of Diuril or further adjusting loop diuretic. Entresto starts today. Continue spironolactone and low-dose carvedilol. Would not further titrate carvedilol until further diuresis. Low-sodium diet, less than 2000 mg daily. Check daily weights at home. Daily weights here. Strict I's and O's. Heart failure program as an outpatient. 2. Atrial fibrillation: Likely playing a role in his heart failure and cardiomyopathy. Heart rate better controlled on low-dose beta-alfonso. Will titrate later as able. Agree with anticoagulation therapy for stroke risk reduction. Discussed treatment strategies and the diagnosis in general. He would like to avoid more aggressive measures at this time. Depending on clinical course, cardioverting to sinus rhythm may improve heart failure symptoms. He stated that he will consider this as an outpatient if necessary. 3. Cardiomyopathy: Possibly tachycardia induced, but cannot exclude ischemic heart disease. He prefers medical therapy for now. No urgent indication for cardiac catheterization. Cardiac cath was considered an discussed on initial consultation. He would like to to pursue medical therapy and then can reconsider ischemic evaluation if LV systolic function does not improve. Once optimized on medical therapy, if no significant improvement in LV systolic function, could qualify for ICD for primary prevention in the future. 4. Pulmonary hypertension: Likely due to hypervolemic state. Will reevaluate in the future after diuresis. 5. Hypokalemia: Replete electrolytes. Will defer to primary hospitalist service. Adding spironolactone which should help spare potassium. Supplementation has been ordered. 6. Elevated troponin: Likely due to decompensated heart failure in the setting of atrial fibrillation with rapid ventricular response. No angina. 7. Disposition: Cardiology will continue to follow. Meeting with patient's son later today when able. Patient care communicated with Dr. Seth of the primary hospitalist service. Heart failure program for close follow-up whenever discharged. I met with the patient and his son, Alex, this afternoon at the bedside. We discussed current cardiac issues, current treatment, treatment plan, expected follow-up, diet, daily weights, and any other questions or concerns. Mr. Jaeger once again stated that he will likely be leaving in the next day or so, but poss ibly tomorrow. His son also inquired about cardioversion and we also discussed ischemic evaluation. Mr. Jaeger once again stated that he prefers medical therapy and can revisit procedures as an outpatient depending on how he is feeling at that time. Patient care was once again discussed with Dr. Seth of the primary hospitalist service this afternoon before this meeting and he presented to the bedside at the end of our discussion. Heart failure program follow-up is scheduled on 10/29/2022 at 10:30 AM. Total visit time today was 53 minutes. Admission and Anticipated Discharge Date Admission Date: October 20, 2022 Subjective Continues to have cough but less so. No dyspnea on exertion while walking to the restroom, but otherwise has not ambulated much. Denies chest pain, syncope, near syncope, palpitations, or bleeding. Edema has improved per patient as his legs feel less restricted. He was alone in his hospital room when seen this morning. Physical Exam Physical Exam: Gen.: No acute distress. Alert and oriented. HEENT: Anicteric sclera. Neck: Elevated JVD. Cardiac: No ventricular heave. Irregularly irregular. Normal S1-S2. No murmurs, rubs, or gallops. Pulmonary: Clear to auscultation bilaterally without wheezes, rales, or rhonchi. Abdomen: Soft, nontender, nondistended, with normoactive bowel sounds. No bruits noted. Extremities: 2+ radial pulses bilaterally. 2+ posterior tibialis pulses bilaterally. 3-4+ bilateral lower extremity edema to knees and then 1-2+ to above the hips. No cyanosis. Right thigh with scar and varicosities (chronic s/p hemangioma resection). Psychiatric: Affect appears appropriate. Results & Data Vital Signs (Past 12 Hours) Vital Signs Temp Pulse Resp BP Pulse Ox O2 Del Method 10/22/22 07:56 36.4 C L 102 H 19 144/109 H 92 Room Air 10/22/22 04:25 36.8 C 96 H 16 111/76 91 Room Air 10/21/22 22:44 36.6 C 76 18 140/101 H 97 Room Air Intake & Output 10/20/22 10/21/22 10/22/22 10/23/22 06:59 06:59 06:59 06:59 Intake Total 1840.000 / 8736.527 3100 / 1690 Output Total 4075 / 4075 2225 / 2225 Balance -2235.000 / -2235.000 -535 / -535 Weight 329 lb 9.457 oz 328 lb 14.875 oz Laboratory Results Laboratory Results - last 24 hr 10/21/22 10/22/22 10/22/22 16:35 07:38 07:38 WBC 5.27 RBC 4.42 L Hgb 13.0 L Hct 38.2 L MCV 86.4 MCH 29.4 MCHC 34.0 RDW Std Deviation 51.0 H RDW Coeff of Naomie 16.4 H Plt Count 233 MPV 9.8 Immature Gran % (Auto) 0.9 Neut % (Auto) 51.7 Lymph % (Auto) 28.7 Mclennan % (Auto) 13.7 Eos % (Auto) 4.6 Baso % (Auto) 0.4 Neut # (Auto) 2.73 Lymph # (Auto) 1.51 Mclennan # (Auto) 0.72 H Eos # (Auto) 0.24 Baso # (Auto) 0.02 Immature Gran # (Auto) 0.05 Sodium 139 140 Potassium 3.4 L 3.3 L Chloride 100 101 Carbon Dioxide 25 28 Anion Gap 14 H 11 BUN 17 17 Creatinine 1.20 1.19 Est Cr Clr Drug Dosing 93.5 94.1 Est GFR ( Amer) 75.2 76.0 Est GFR (Non-Af Amer) 64.9 65.5 BUN/Creatinine Ratio 14.2 14.3 Glucose 106 H 96 Calcium 9.2 9.1 Magnesium 1.7 Diagnostic Findings Telemetry personally reviewed: Atrial fibrillation. Labs reviewed and notable for mild anemia, hypokalemia, stable renal function, normal magnesium. Medications Administered Current Inpatient Medications Acetaminophen (Acetaminophen 325 Mg Tab) 650 mg PO Q4H PRN PRN Reason: Pain or Fever Stop: 11/19/22 14:30 Apixaban (Apixaban 5 Mg Tablet) 5 mg PO BID [facility] Stop: 11/21/22 08:59 Last Admin: 10/22/22 09:15 Dose: 5 mg Carvedilol (Carvedilol 6.25 Mg Tab) 6.25 mg PO BIDM [facility] Stop: 11/21/22 08:44 Last Admin: 10/22/22 09:15 Dose: 6.25 mg Furosemide (Furosemide 40 Mg/4 Ml Vial) 80 mg IV BID17 [facility] Stop: 11/20/22 16:59 Last Admin: 10/21/22 16:34 Dose: 80 mg Magnesium Oxide (Magnesium Oxide 400 Mg Tab) 400 mg PO BID [facility] Stop: 11/21/22 08:59 Last Admin: 10/22/22 09:15 Dose: 400 mg Ondansetron HCl (Ondansetron Inj 2 Mg/Ml 2 Ml Vial) 4 mg IV Q6H PRN PRN Reason: Nausea Stop: 11/19/22 14:30 Potassium Chloride (Potassium Chloride Crtab 20 Meq Tabcr) 40 meq PO BID [facility] Stop: 11/21/22 08:59 Last Admin: 10/22/22 09:14 Dose: 40 meq Sacubitril/Valsartan (Valsartan/Sacubitril 26/24mg Tab) 1 tab PO BID [facility] Stop: 11/21/22 08:59 Last Admin: 10/22/22 09:13 Dose: 1 tab Spironolactone (Spironolactone 25 Mg Tab) 25 mg PO QAM [facility] Stop: 11/21/22 08:59 Last Admin: 10/22/22 09:14 Dose: 25 mg PG Care Time/CCT Total # of Minutes Spent Total Time Spent with Patient: Total time spent is greater than 50% in coordination of care (as documented) at patient's floor/unit and/or counseling patient: Coding Level of Care Code 57594 SUB INP/OBS CARE 3/50MIN Diagnoses Acute HFrEF (heart failure with reduced ejection fraction) I50.21 Atrial fibrillation with RVR I48.91 Cardiomyopathy I42.9 Pulmonary hypertension I27.20 Hypokalemia E87.6 Elevated troponin R77.8 Time Spent (min) 53
[2022-10-22] MEDS: FUROSEMIDE 40 MG/4 ML VIAL IV SCH ×2 (09:49→17:11)
[2022-10-22] MEDS: carvediloL 3.125 MG TAB PO SCH (18:15)
--- NOTE | 2022-10-22 18:18 | Billing Data ---
Date of Service October 22, 2022 Coding Level of Care Code 58902 SUB INP/OBS CARE MIN
[2022-10-22] MEDS ORDERED: COUGH DROP (SUGAR FREE) LOZ 24 LOZ/1 BOX BUCCAL STA (22:11)
--- NOTE | 2022-10-23 07:05 | Discharge Summary ---
Date of Service October 23, 2022 Admission HPI Per Admitting Provider 62yo male taking no chronic medications presented to ER with concerns for ongoing shortness of breath since January, but worsened in the past 2 months along with lower extremity edema. Family noticed that he has been having increased leg swelling in combination with his shortness of breath and has an associated nonproductive cough for several months. On admission, EKG w/ noted Afib w RVR with rates 120bpm. Lopressor 5mg IV x 1, heparin were ordered by ER provider, and venous dopplers pending to r/o DVT given swelling. Apparently there is a family history of afib but patient without known history of such personally, but had noted palpitations starting last summer with sensation of "fluttering in the chest", but denied lightheadedness/syncopal symptoms. He used to be a fairly active lorena but his exercise tolerance has gone down significantly with increased swelling/shortness of breath/VILLAFANA limiting his ability to lennon/golf most recently. Son at bedside, CONSUELO w/ orthopedics Michele Mil. Corroborates story with patient. He does endorse his father with increased shortness of breath, worsening since around Thanksgi time with associated nonproductive cough. Patient sleeps laying on his side, states laying flat on back causes back pain but does not require several pillows to become comfortable. He notes his pants have been fitting tighter as well but that he doesn't routinely check his weights. His swelling has progressed and now having pitting edema to his thighs. He has not seen a doctor in many years, has appointment with Dr Berry in December/January, but discussed will attempt to arrange sooner. Also discussed likely need for anticoagulation and will have boudreaux check eliquis vs xarelto, checking ECHO to evaluate for valvular heart disease as well. He is on no medications at present. No abdominal pain/diarrhea or intolerance to fatty foods and states he does try and eat healthy but that his appetite has been decreased. No hx JARED, but son does endorse he does snore. Family history: afib, DM, no sudden cardiac deaths Social history: Does drink socially, no heavy use reported. Chewing tobacco about 1/2 can every other day to a can Q2D. Rec cessation. ER Course: CXR w/ cardiomegaly and evidence for volume overload. BNP elevated to 775. Trop 39.2 on initial check, patient denies any chest pain. K 3.0, mag 1.6. Has been given Lasix 40mg IV x 1 with 40meq PO KCl. Magnesium level checked and 1.6, IV replacement ordered with 1gm thus far. ER provider started on Heparin gtt to cover for afib. Discussed admission to hospital for diuresis, monitoring on telemetry, echo, cardiology consultation/CHF clininc in follow up and getting him PCP appointment arranged sooner. TSH added to AM labs, and will continue lasix 40mg IV BID. Admission Exam Per Admitting Provider General: WD/WN obese male sitting up in bed, +cough, NAD, son at bedside HEENT: head normocephalic, atraumatic, +JVD Resp: diminished in the bases with expiratory wheezing throughout, no rales, on room air, easily winded, +cough CV: irregularly irregular (rates currently 90s), +murmur, ?S3,3+bilateral pit ting edema to the thighs GI: +BS, obese, distended but nontender, no guarding : no galvin MSK/Neuro: follows commands, no facial droop, no focal deficit prior scar to right knee from ACL surgery Psych: AOx3, pleasant and cooperative with examination Principal Diagnosis Congestive heart failure with reduced ejection fraction and atrial fibrillation Discharge Exam Constitutional: WD/WN, vitals as above Eyes: PERRL, conjunctivae normal, anicteric sclerae Respiratory: normal respiratory effort, lungs clear to auscultation Cardiovascular: Rate/Rhythm: + irregularly irregular Extremities: + edema (Lower extremity edema) Gastrointestinal (Abdomen): normal bowel sounds, soft, nontender, no hepatosplenomegaly Skin: no rashes, warm and dry Neurologic: patellar DTR's 2+ bilat, sensation intact Psychiatric: A+Ox3, euthymic affect Discharge Data Allergies Allergy/AdvReac Type Severity Reaction Status Date / Time No Known Allergies Allergy Verified 10/20/22 11:57 Consultations 10/20/22 12:00 ED Decision to Admit Stat 10/20/22 14:31 [facility] CHF Program Referral Routine 10/20/22 17:44 Consult Cardiology Routine Ordered Studies Abnormal lab results 10/23/22 10/23/22 Range/Units 07:21 07:21 RBC 4.68 L (4.70-6.10) M/uL Hgb 13.8 L (14.0-18.0) g/dl Hct 41.3 L (42.0-52.0) % RDW Std Deviation 51.9 H (36.4-46.3) fL RDW Coeff of Naomie 16.3 H (11.5-14.5) % [place] # (Auto) 0.74 H (0.11-0.59) K/uL Anion Gap 12 H (3-11) Chest X-Ray 10/20/22 10:46 XR chest 1V portable CLINICAL HISTORY: Dyspnea TECHNIQUE: Single frontal radiograph of the chest was obtained. Comparison: None available at the time of this dictation. FINDINGS: No lines and tubes are seen. Cardiomegaly is noted. Prominence and cephalization of the vasculature is seen. No evidence of pleural effusion or pneumothorax. IMPRESSION: Cardiomegaly and mild pulmonary edema. ACT 112: Negative or not required by law. Electronically signed by: Reed Paz M.D. 10/20/2022 11:28 AM Venous Doppler Study 10/20/22 12:00 BILATERAL LOWER EXTREMITY VENOUS DOPPLER HISTORY: Acute pain with swelling of the lower legs swelling, sob COMPARISON STUDY: None. FINDINGS: There is normal compressibility, flow, and augmentation within the bilateral lower extremity deep venous systems. Subcutaneous edema. IMPRESSION: No DVT within the right or left lower extremity. ACT 112: Negative or not required by law. Electronically signed by: Ankur Butcher M.D. 10/20/2022 3:17 PM 10/20/22 12:00 venous doppler [facility] Hospital Course (1) Congestive heart failure: (2) Atrial fibrillation with RVR: (3) Elevated troponin: (4) Hypomagnesemia: (5) Hypokalemia: (6) Prediabetes: Plan Atrial fibrillation with RVR Rate controlled with beta-alfonso. Carvedilol 6.25mg BID. Anticoagulation therapy for stroke risk reduction according to patient's Addison vas score. Started on Eliquis 5 mg twice daily. A-fib most likely contributing to patient's acute exacerbation of congestive heart failure. Recommend low-sodium diets. Rate controlled during admission. Acute on chronic congestive heart failure with reduced ejection fraction Presented with shortness of breath, orthopnea, lower extremity edema, and weight gain. Chest x-ray showed cardiomegaly and mild pulmonary edema. BNP elevated at 775. TSH normal. Due to lower extremity edema, was ordered venous Doppler of the lower extremity which was negative at time of admission. Echo performed today showed an EF of 30 to 35% with global hypokinesis and mild left ventricular hypertrophy. Started on Entresto low-dose and spironolactone 25 mg once a day. Daily weights and strict I's and O's. Heart failure program at discharge. Patient will need an outpatient sleep study due to most likely having obstructive sleep apnea. We will try to set up at this time prior to discharge. Diuresis achieved with Lasix 80 mg IV twice daily. At time of discharge patient should be put on 80 mg Lasix p.o. twice a day. Also started on potassium chloride 40 mg twice a day. We will check BMP in 3 days. Start on spironolactone 25 mg once a day, low-dose Entresto once a day, and Jardiance 10 mg once a day. Patient has not seen a PCP in quite some time. Will establish care with me (Dr. Hernandez) in in 1 to 2 weeks. Hyperlipidemia Patient's ASCVD risk score was 8%. Start on atorvastatin 20 mg Elevated troponin Patient is currently not having any chest pain. Likely secondary to heart failure and A-fib with RVR. Hypokalemia Potassium of 3.0 on admission Repleted Potassium chloride 40 mg twice a day Hypomagnesia Magnesium of 1.6 at time of admission. Repleted Prediabetes Hemoglobin A1c of 5.9 on 10/21/2022 Recommend diet management at this time. Should follow-up as an outpatient with PCP. Total Time Total Time Spent Total Time Spent (In Minutes): Less than 30-minutes Discharge Plan Discharge Items Patient Disposition: Home - Self-Care Reason For Visit: AFIB, RVR, HEART FAILURE Discharge Diagnosis: Congestive heart failure with reduced ejection fraction and atrial fibrillation Activity: Resume your previous activity Non-emergency contact: Primary Care Provider Call non-emergency contact if: you have any medication questions, your pain is unusual for you and your temperature is above 101.5 Follow-up/Referrals: Reid Hernandez DO [Resident] - PCP,NO [Primary Care Provider] - Diet: Heart Healthy and Low Potassium (2gm) Ambulatory Orders: Basic Metabolic Panel (Routine) Timeframe: 3 Days Location: Determined by Patient Ordered By: Reid Lopez Attending Provider Instructions: You were admitted to the hospital for congestive heart failure and atrial fibrillation. You were treated with diuresis and other medications for your congestive heart failure and atrial fibrillation were started. A discharge summary will be sent to your primary care physician to ensure continuity of care. Please bring this discharge summary with you to your next office appointment so that your provider can review it at that time. Follow-up appointments: * You have an appointment with Dr. Hernandez on 11/04/2022 1:45pm at [facility]. If you are unable to make this appointment, or have any other questions, their office can be reached at [phone]. * You have an appointment with cardiology on 10/29/2022 at 10:30 AM at the [facility] congestive heart failure clinic. * Keep all your follow-up appointments as already scheduled. If you cannot make an appointment, notify your provider. Medications: Your medication list has been reviewed and reconciled upon discharge to ensure accuracy and continuity of care. An updated list of all your medications is included with your hospital discharge paperwork. Please review this list closely, and make note of any changes. * We sent a new medication called Eliquis to your pharmacy. Take Eliquis (5 mg) 1 tablet twice a day. * We sent a new medication called Entresto to your pharmacy. Take Entresto (2426 mg) 1 tablet twice a day. * We sent a new medication called carvedilol to your pharmacy. Take carvedilol (6.25 mg) 1 tablet twice a day. * We sent a new medication called spironolactone to your pharmacy. Take spironolactone (25 mg) 1 tablet in the morning. * We sent a new medication called atorvastatin to your pharmacy. Take atorvastatin (20 mg) 1 tablet daily. * We sent in a new medication called Lasix to your pharmacy. Please take Lasix (80 mg) 1 tablet twice a day. * We sent in a new medication called potassium chloride to your pharmacy. Please take potassium chloride (40 mg) 2 tablets twice a day. * We sent in a new medication called Jardiance to your pharmacy. Take Jardiance (10 mg)1 tablet once a day. * We also sent in a prescription for you to have a basic metabolic profile done in 3 days. * If you have any issues filling these prescriptions, please call [phone] and ask to leave a message for Dr. Hernandez. * Take your medications as instructed; do not skip a dose of your medicines. Make sure all of your doctors know every medicine you are taking (including edjn-yfg-tjrazmn medicines, vitamins, and supplements). Call your primary care provider before taking any new medicines (including over- the-counter medicines, vitamins, and supplements), because some of these may interact with your current medications, or may make your symptoms worse. Tell your primary care provider if you cannot afford your medications. CONTACT YOUR PRIMARY CARE PROVIDER if you experience any of the following: * Worsening of symptoms * Fever, chills, or fatigue * Difficulty following your treatment plan, or difficulty taking medications CALL 911 OR GO TO THE EMERGENCY DEPARTMENT if you experience any of the following: * Sudden, severe abdominal pain or nausea/vomiting * Severe chest pain, or chest pain that radiates (moves) to your jaw or arm * Sudden, severe shortness of breath or difficulty breathing Thank you for allowing us to participate in your care. Pending Studies at Discharge: No Stand-Alone Forms: [facility], Smoking Cessation Medications and DC Order Prescriptions: New Eliquis 5 mg Tablet 5 mg PO BID Qty: 30 0RF Entresto 24-26 mg Tablet 1 tab PO BID Qty: 30 0RF carvedilol 6.25 mg Tablet 6.25 mg PO BIDM 30 Days Qty: 60 0RF atorvastatin 20 mg Tablet 20 mg PO HS 30 Days Qty: 30 0RF spironolactone 25 mg Tablet 25 mg PO QAM 30 Days Qty: 30 0RF potassium chloride 20 mEq Tablet,Er Particles/Crystals 40 meq PO BID 30 Days Qty: 120 0RF furosemide [Lasix] 80 mg tablet 80 mg PO BID 30 Days Qty: 60 0RF Jardiance 10 mg tablet 10 mg PO DAILY 30 Days Qty: 30 0RF Discharge Orders: Discharge Order- CHF (Routine); Ordered 10/23/22 Ordered By: Reid Hurtado/Other Patient Handouts: Exercise for a Healthier Heart Admission Data Admit Date/Time: 04/11/23 12:44 Attending Provider: Vikas Seth Admit Provider: Kolton Wooten Primary Care Provider: PCP,NO Other Providers: Kolton Wooten ; Deja Holloway ; Terence Howell Other Interventions: Discharge Summary Assessment (RN) Last Done: 10/23/22 17:15 Supervising Physician Co-Signing Physician Notes I personally examined the patient and verified all ramirez points of history and exam, discussed case, and agree with decision making with Dr Hernandez Feels pretty good overall. Breathing good. Feels up to going home. Reviewed next steps/discharge plan with patient and son. Vitals noted, in general he is awake and alert pleasant no distress. HEENT normocephalic atraumatic mucous membranes moist. Breathing unlabored no accessory muscle use good effort. Skin shows no rashes no pallor or icterus. Neuro without focal deficits. BMP, CBC noted. Acute HFrEFhis cascade of events is likely that undiagnosed sleep apnea led to unknown atrial fibrillationand then persistent A-fib/persistent tachycardia led to myocardial fatigue and rate related CHF, leading to his current decompensation. Safe for home. Continue more aggressive diuresis with basic metabolic panel Wednesday or Wednesday of next week. Discussed that current dosing of diuretics will almost certainly be reduced. Coreg, Entresto, SGLT2, sleep study being set up (discussed need for adherence with treatment presuming diagnosis is confirmed), close outpatient follow-up. Otherwise as above. Resident Activity Tracking Resident Involvement: Resident Care Provided Care Provided: Adult Hospital Medicine
[2022-10-23 08:20] LABS: Basophils # (auto) 0.01 K/uL (0-0.2); Basophils % (auto) 0.2 %; Eosinophils # (auto) 0.26 K/uL (0-0.50); Eosinophils % (auto) 4.8 %; Hematocrit (blood only) 41.3 % (42.0-52.0); Hemoglobin 13.8 g/dl (14.0-18.0); Immature Granulocytes # (auto) 0.05 K/uL (0.01-0.20); Immature Granulocytes % (auto) 0.9 %; Lymphocytes # (auto) 1.56 K/uL (1.2-3.4); Lymphocytes % (auto) 28.7 %; Mean Corpuscular Hemoglobin 29.5 pg (25.0-34.0); Mean Corpuscular Hgb Conc 33.4 g/dL (32.0-36.0); Mean Corpuscular Volume 88.2 fL (80.0-100.0); Mean Platelet Volume 10.1 fL (9.4-12.4); Monocytes # (auto) 0.74 K/uL (0.11-0.59); Monocytes % (auto) 13.6 %; Neutrophils # (auto) 2.82 K/uL (1.40-6.50); Neutrophils % (auto) 51.8 %; Platelet Count 255 K/uL (130-400); RDW Coefficient of Variation 16.3 % (11.5-14.5); RDW Standard Deviation 51.9 fL (36.4-46.3); Red Blood Count 4.68 M/uL (4.70-6.10); White Blood Count 5.44 K/ul (4.8-10.8)
[2022-10-23 08:27] LABS: BUN Creatinine Ratio 15.5 (10-20); Creatinine Clr Calc Pharmacy 95.2 ml/min; Est GFR (African American) 78.3 ml/min; Est GFR (Non-African American) 67.6 ml/min; Potassium 3.5 mmol/L (3.5-5.1)
[2022-10-23] MEDS: carvediloL 6.25 MG TAB PO SCH ×2 (09:31→16:58)
[2022-10-23] MEDS: MAGNESIUM OXIDE 400 MG TAB PO SCH (09:31)
[2022-10-23] MEDS: FUROSEMIDE 40 MG/4 ML VIAL IV SCH (09:31)
[2022-10-23] MEDS: SPIRONOLACTONE 25 MG TAB PO SCH (09:32)
[2022-10-23] MEDS: APIXABAN 5 MG TABLET PO SCH (09:32)
[2022-10-23] MEDS: VALSARTAN/SACUBITRIL 26/24MG TAB PO SCH (09:39)
[2022-10-23] MEDS: POTASSIUM CHLORIDE CRTAB 20 MEQ TABCR PO SCH (09:41)
--- NOTE | 2022-10-23 10:41 | Cardiology Progress Note ---
Date of Service October 23, 2022 Assessment & Plan (1) Acute HFrEF (heart failure with reduced ejection fraction): (2) Atrial fibrillation with RVR: (3) Cardiomyopathy: (4) Pulmonary hypertension: (5) Hypokalemia: (6) Elevated troponin: (7) Dyslipidemia: Plan ASSESSMENT/PLAN: 1. Acute heart failure with reduced EF: Presented with class III symptoms. He remains significantly hypervolemic and would benefit from ongoing hospitalization with intravenous diuretics but he has decided to leave today. He is willing to receive his afternoon dose of Lasix 80 mg. Recommend Lasix 80 mg p.o. twice daily on discharge and if not adequately diuresing on oral diuretics at home, would recommend transitioning to Bumex. Very good diuresis the past 24 hours. Continue spironolactone, carvedilol, Entresto. Start Jardiance. Low-sodium diet, less than 2000 mg daily. Check daily weights at home. Daily weights here. Strict I's and O's. Heart failure program as an outpatient. Spoke with Lottie Vaz (hospitalist navigator) and she is helping assist in obtaining his heart failure medications in a more affordable fashion. Appreciate her assistance. 2. Atrial fibrillation: Initially with RVR, which likely contributed to heart failure and cardiomyopathy. Heart rate better controlled on low-dose beta- alfonso. Will titrate later as able. Agree with anticoagulation therapy for stroke risk reduction. Discussed treatment strategies and the diagnosis in general. He would like to avoid more aggressive measures at this time. Depending on clinical course, cardioverting to sinus rhythm may improve heart failure symptoms. He stated that he will consider this as an outpatient if necessary. 3. Cardiomyopathy: Possibly tachycardia induced, but cannot exclude ischemic heart disease. He prefers medical therapy for now. No urgent indication for cardiac catheterization. Cardiac cath was considered an discussed on initial consultation. He would like to to pursue medical therapy and then can reconsider ischemic evaluation if LV systolic function does not improve. Once optimized on medical therapy, if no significant improvement in LV systolic function, could qualify for ICD for primary prevention in the future. 4. Pulmonary hypertension: Likely due to hypervolemic state. Will reevaluate in the future after diuresis. 5. Hypokalemia: Low normal potassium today. As per primary hospitalist service. 6. Elevated troponin: Likely due to decompensated heart failure in the setting of atrial fibrillation with rapid ventricular response. No angina. 7. Dyslipidemia: 10-year cardiovascular risk is elevated (~8.4%). Start atorvastatin 20 mg daily. 8. Disposition: If he remains hospitalized, please call [facility] on-call department administrator for questions or concerns or assistance as I will be away from the hospital for the next several days. Patient care communicated with Dr. Seth of the primary hospitalist service. Heart failure program visit on 10/29/22 at 10:30AM. Admission and Anticipated Discharge Date Admission Date: October 20, 2022 Subjective Patient seen late this morning. Feeling better. Has not noted any dyspnea in his room and states that moving around is easier now than it was prior to presentation. Edema continues to improve and his legs feel better. He denies shortness of breath, orthopnea, chest pain, palpitations, syncope, or bleeding. He would like to be discharged today but is willing to get his afternoon dose of Lasix prior to discharge. He was alone in his hospital room. Earlier this afternoon, his [id number], Alison, called for an update and we spoke via telephone to update her on his overall cardiac status today. Physical Exam Physical Exam: Gen.: No acute distress. Alert and oriented. HEENT: Anicteric sclera. Neck: Elevated JVD. Cardiac: No ventricular heave. Irregularly irregular. Normal heart rate. Normal S1-S2. No murmurs, rubs, or gallops. Pulmonary: Clear to auscultation bilaterally without wheezes, rales, or rhonchi. Abdomen: Soft, nontender, nondistended, with normoactive bowel sounds. No bruits noted. Extremities: 2+ radial pulses bilaterally. 2+ posterior tibialis pulses bilaterally. 3+ bilateral lower extremity edema to knees and then 2+ to above th e hips. No cyanosis. Right thigh with scar and varicosities (chronic s/p hemangioma resection). Psychiatric: Affect appears appropriate. Results & Data Vital Signs (Past 12 Hours) Vital Signs Temp Pulse Resp BP Pulse Ox O2 Del Method 10/23/22 07:08 36.5 C 89 20 137/94 92 Room Air 10/23/22 03:02 36.5 C 90 20 105/68 93 Room Air 10/22/22 22:53 36.6 C 96 H 20 130/91 92 Room Air Intake & Output 04/12/23 04/13/23 04/14/23 04/15/23 06:59 06:59 06:59 06:59 Intake Total 1840.000 / 9205.882 4591 / 1690 780 / 780 Output Total 4075 / 4075 2225 / 2225 5000 / 5000 425 / 425 Balance -2235.000 / -2235.000 -535 / -535 -4220 / -4220 -425 / -425 Weight 329 lb 9.457 oz 328 lb 14.875 oz 320 lb 15.889 oz Laboratory Results Laboratory Results - last 24 hr 10/23/22 10/23/22 07:21 07:21 WBC 5.44 RBC 4.68 L Hgb 13.8 L Hct 41.3 L MCV 88.2 MCH 29.5 MCHC 33.4 RDW Std Deviation 51.9 H RDW Coeff of Naomie 16.3 H Plt Count 255 MPV 10.1 Immature Gran % (Auto) 0.9 Neut % (Auto) 51.8 Lymph % (Auto) 28.7 [place] % (Auto) 13.6 Eos % (Auto) 4.8 Baso % (Auto) 0.2 Neut # (Auto) 2.82 Lymph # (Auto) 1.56 [place] # (Auto) 0.74 H Eos # (Auto) 0.26 Baso # (Auto) 0.01 Immature Gran # (Auto) 0.05 Sodium 142 Potassium 3.5 Chloride 102 Carbon Dioxide 28 Anion Gap 12 H BUN 18 Creatinine 1.16 Est Cr Clr Drug Dosing 95.2 Est GFR ( Amer) 78.3 Est GFR (Non-Af Amer) 67.6 BUN/Creatinine Ratio 15.5 Glucose 97 Calcium 9.0 Diagnostic Findings Telemetry personally reviewed: Atrial fibrillation with reasonable heart rate control. Labs from 10/23/2022 notable for stable renal function, low normal potassium, stable hemoglobin. Medications Administered Current Inpatient Medications Acetaminophen (Acetaminophen 325 Mg Tab) 650 mg PO Q4H PRN PRN Reason: Pain or Fever Stop: 11/19/22 14:30 Apixaban (Apixaban 5 Mg Tablet) 5 mg PO BID [facility] Stop: 11/21/22 08:59 Last Admin: 10/23/22 09:32 Dose: 5 mg Carvedilol (Carvedilol 6.25 Mg Tab) 6.25 mg PO BIDM [facility] Stop: 11/21/22 08:44 Last Admin: 10/23/22 09:31 Dose: 6.25 mg Furosemide (Furosemide 40 Mg/4 Ml Vial) 80 mg IV BID17 [facility] Stop: 11/20/22 16:59 Last Admin: 10/23/22 09:31 Dose: 80 mg Magnesium Oxide (Magnesium Oxide 400 Mg Tab) 400 mg PO BID [facility] Stop: 11/21/22 08:59 Last Admin: 10/23/22 09:31 Dose: 400 mg Ondansetron HCl (Ondansetron Inj 2 Mg/Ml 2 Ml Vial) 4 mg IV Q6H PRN PRN Reason: Nausea Stop: 11/19/22 14:30 Potassium Chloride (Potassium Chloride Crtab 20 Meq Tabcr) 40 meq PO TID [facility] Stop: 11/22/22 13:59 Sacubitril/Valsartan (Valsartan/Sacubitril 26/24mg Tab) 1 tab PO BID [facility] Stop: 11/21/22 08:59 Last Admin: 10/23/22 09:39 Dose: 1 tab Spironolactone (Spironolactone 25 Mg Tab) 25 mg PO QAM [facility] Stop: 11/21/22 08:59 Last Admin: 10/23/22 09:32 Dose: 25 mg PG Care Time/CCT Total # of Minutes Spent Total Time Spent with Patient: Total time spent is greater than 50% in coordination of care (as documented) at patient's floor/unit and/or counseling patient: Coding Level of Care Code 64648 SUB INP/OBS CARE 2/35MIN Diagnoses Acute HFrEF (heart failure with reduced ejection fraction) I50.21 Atrial fibrillation with RVR I48.91 Cardiomyopathy I42.9 Pulmonary hypertension I27.20 Hypokalemia E87.6 Elevated troponin R77.8 Dyslipidemia E78.5
[2022-10-23] MEDS ORDERED: EMPAGLIFLOZIN 10 MG TAB PO SCH (13:45)
[2022-10-23] MEDS ORDERED: POTASSIUM CHLORIDE CRTAB 20 MEQ TABCR PO SCH (14:00)
[2022-10-23] MEDS ORDERED: FUROSEMIDE 40 MG/4 ML VIAL IV ONE (16:15)
--- NOTE | 2022-10-23 19:14 | Billing Data ---
Date of Service October 23, 2022 Coding Level of Care Code 76507 IN/OBS DISCH 30 MIN/LESS
[2022-10-23] MEDS ORDERED: ATORVASTATIN 20 MG TAB PO SCH (21:00)
--- NOTE | 2022-10-23 21:35 | Electrocardiogram Report ---
Test Reason : Blood Pressure : / mmHG Vent. Rate : 103 BPM Atrial Rate : 083 BPM P-R Int : 000 ms QRS Dur : 128 ms QT Int : 400 ms P-R-T Axes : 000 187 013 degrees QTc Int : 524 ms Atrial fibrillation with rapid ventricular response Right superior axis deviation Non-specific intra-ventricular conduction block Septal infarct (cited on or before 21-OCT-2022) Nonspecific T wave abnormality Abnormal ECG When compared with ECG of 21-OCT-2022 05:45, Nonspecific T wave abnormality no longer evident in Anterior leads Nonspecific T wave abnormality, worse in Lateral leads Confirmed by Terence Howell ([id number]) on 10/23/2022 9:34:59 PM Referred By: REFERRED SELF Confirmed By:Terence Howell
== END 2022-10-23 18:00 | disposition home or self-care (01) | DRG 291 ==
LOC: ED 10:19 → 2S 12:44 → SUATTDRO 12:44 → 2S 13:37

== ENCOUNTER 2022-11-12 11:20 | Inpatient (IN) ==
[2022-11-12] MEDS ORDERED: SODIUM CHLORIDE 0.9% 1000ML 1,000 ML IV ONE (11:51)
--- NOTE | 2022-11-12 11:52 | Emergency Department Note ---
Impression & Plan PATRCIIA (acute kidney injury) ADMIT ED Provider Note HPI: The patient is a 62-year-old male with recently diagnosed atrial fibrillation, currently on Eliquis, heart failure with reduced ejection fraction approximately 30 to 35%, who presents emergency department with a chief complaint of hypotensive and a presyncopal type event today at his outpatient appointment. Patient was in the heart failure clinic today and started become diaphoretic and lightheaded when he was having his blood pressure taken. Per patient they were having some difficulty getting a blood pressure and therefore he was referred to the ED to be assessed. Patient was given approximately 200 cc IV fluid prior to arrival. On arrival here to the ED he states he is feeling improved. States he believes when they were taking his blood pressure it was causing him to be lightheaded. Patient denies any chest pain or shortness of breath. Patient was noted to be hypotensive on arrival here at 80/43, he is not tachycardic, he is alert and oriented, saturating well on room air on my initial assessment. He overall appears nontoxic despite his hypotension. ROS: - Per HPI *Outpatient medications and allergy history reviewed. *Pertinent external medical records reviewed. PE: General: Alert HEENT: Normocephalic, trachea midline Eyes: Extraocular eye movement is intact, no scleral erythema Pulmonary: Clear to auscultation bilaterally, no wheezing Cardio: Regular rate and rhythm GI: Abdomen is soft to palpation : No suprapubic tenderness MSK: No evidence of trauma or malformation of the extremities, no edema Skin: No evidence of rash Neuro: Alert, no focal deficits Psychiatric: Cooperative monitoring tech: (As interpreted by myself): - An order was placed for continuous cardiac monitoring - Patient was noted to be in atrial fibrillation with rate of 85 EKG: (As interpreted by myself): Rate: 68 Rhythm: Atrial fibrillation Intervals: Within normal limits ST changes: No ST elevation Time: 1130 Interventions provided in ED: -IV fluid bolus, IV calcium, albuterol breathing treatment, insulin, dextrose, [place] Differential Diagnosis: CHF exacerbation, vasovagal event, acute coronary syndrome, pulmonary embolism, hypovolemia with hypotension, sepsis, amongst other potential pathologies. Medical Decision Making: Patient presented to the emergency department after experiencing some lightheadedness and diaphoresis at his outpatient appointment today in the heart failure clinic. Patient was noted to be hypotensive in the clinic and therefore sent to the ED for assessment. On arrival patient states he is feeling improved, denies any chest pain or shortness of breath. IV was established and lab work obtained, patient was given IV fluid bolus secondary to his hypotension at 80 systolic on arrival, blood pressure did improve to 90/58, he is not tachycardic, no recent fevers, low concern for sepsis. Given that the patient has been on high-dose diuretics recently for his cardiomyopathy, IV was established and lab work obtained, lab work shows no leukocytosis, hemoglobin is stable, platelet count is within normal limits, CMP does show evidence of acute kidney injury with creatinine of 2.38, BUN elevated 45, potassium elevated at 6.0 without any acute changes noted on EKG, there is also a mild transaminitis that appears slightly above the patient's baseline, no abdominal pain noted on exam. Bilirubin has been elevated in the past and is actually slightly lower than previous of 1.7. Troponin is negative at 13.1. BNP is currently pending. Procalcitonin is low. Chest x-ray shows mild cardiomegaly without acute process. The above interventions were initiated for the patient's PATRICIA as well as hyperkalemia. Case was discussed with the on-call hospitalist service for [facility] provider group and the patient was placed for admission in stable condition. Consultants: [facility] hospitalist service, Dr. Wooten Disposition discussion held by myself with: Patient and son at the bedside * CRITICAL CARE TIME: ( 35 ) minutes -Stabilization of acute hyperkalemia and hypotension requiring IV fluid resuscitation as well as medications for reversal of hyperkalemia, interpretation of EKG and diagnostic studies, time spent at the bedside, discussion with other physicians and arrangement of admission Diagnosis: 1. Hyperkalemia, acute 2. Hypotension, acute 3. Acute kidney injury 4. Transaminitis, nonspecific Disposition: Admission James Jones DO Emergency Medicine Past Med/Surg History Medical History (Updated 11/12/22 @ 13:00 by James Jones DO) Acute HFrEF (heart failure with reduced ejection fraction) Atrial fibrillation with RVR Cardiomyopathy Dyslipidemia No pertinent past medical history Pulmonary hypertension Right ACL tear Surgical History (Updated 10/21/22 @ 17:40 by Sachin Cummings MD) H/O anterior cruciate ligament surgery Social History Smoking Status: Never smoker Tobacco Type: Smokeless Tobacco (Dip or Chew) Do You Dip or Chew Tobacco: Yes; Hx Alcohol Use: Yes Alcohol type: wine Alcohol type Comment: socially Hx Substance Use: No Preferred Language: Romansh Communication Ability: Effective Motorcycle Deliverer Required: No Beliefs That Will Affect Care: None Current Living Situation: Alone Feels Safe at Home: Yes Assistive Devices: None Allergies Allergies Allergy/AdvReac Type Severity Reaction Status Date / Time No Known Allergies Allergy Verified 11/12/22 10:20 Home Meds Previous Rx's Medication Instructions Recorded potassium chloride 20 mEq 40 meq PO BID 30 days #120 tabs 10/23/22 tablet,extended release(part/cryst) apixaban 5 mg tablet (Eliquis) 5 mg PO BID #180 tabs 10/29/22 atorvastatin 20 mg tablet 20 mg PO HS 30 days #90 tabs 10/29/22 empagliflozin 10 mg tablet 10 mg PO DAILY 30 days #90 tabs 10/29/22 (Jardiance) furosemide 80 mg tablet (Lasix) 80 mg PO BID #180 tabs 10/29/22 sacubitril 24 mg-valsartan 26 mg 1 tab PO BID #60 tabs 10/29/22 tablet (Entresto) spironolactone 25 mg tablet 25 mg PO QAM 30 days #90 tabs 10/29/22 carvedilol 12.5 mg tablet 6.25 mg PO BIDM 30 days #30 tabs 11/12/22 Results & Data (ED) Vital Signs Vital Signs - 24 hr 11/12/22 11:35 11/12/22 11:41 11/12/22 11:41 Temperature 36.3 C L 36.3 C L Temperature Source Oral Oral Pulse Rate 72 Pulse Rate [Apical] 72 Pulse Rhythm [Apical] Irregular Pulse Strength [Apical] Normal Respiratory Rate 18 18 Respiratory Effort / Characteristics Non-Labored Non-Labored Respiratory Depth Normal Normal Respiratory Pattern Regular Blood Pressure 80/43 L Blood Pressure [Left Arm] Blood Pressure Mean 55 Blood Pressure Mean [Left Arm] Pulse Oximetry 95 95 95 Oxygen Delivery Method Room Air Room Air Room Air Oxygen Flow Rate 0 Sepsis Recent Fever Within 48 Hours No Sepsis New/Unexplained Change in Mental Status No Sepsis Action Taken by Nursing No Action Required 11/12/22 11:47 11/12/22 11:48 11/12/22 12:29 Temperature 36.3 C L Temperature Source Oral Pulse Rate 75 87 Pulse Rate [Apical] 72 Pulse Rhythm [Apical] Pulse Strength [Apical] Respiratory Rate 18 Respiratory Effort / Characteristics Non-Labored Respiratory Depth Normal Respiratory Pattern Blood Pressure Blood Pressure [Left Arm] Blood Pressure Mean Blood Pressure Mean [Left Arm] Pulse Oximetry 95 95 Oxygen Delivery Method Room Air Room Air Oxygen Flow Rate Sepsis Recent Fever Within 48 Hours Sepsis New/Unexplained Change in Mental Status Sepsis Action Taken by Nursing 11/12/22 12:33 Temperature Temperature Source Pulse Rate Pulse Rate [Apical] 87 Pulse Rhythm [Apical] Pulse Strength [Apical] Respiratory Rate 18 Respiratory Effort / Characteristics Respiratory Depth Respiratory Pattern Blood Pressure Blood Pressure [Left Arm] 90/58 L Blood Pressure Mean Blood Pressure Mean [Left Arm] 68 Pulse Oximetry 95 Oxygen Delivery Method Oxygen Flow Rate Sepsis Recent Fever Within 48 Hours Sepsis New/Unexplained Change in Mental Status Sepsis Action Taken by Nursing Laboratory Data 11/12/22 11:42 11/12/22 11:42 Lab Results 11/12/22 11/12/22 11/12/22 Range/Units 11:42 11:42 11:42 WBC 9.70 (4.8-10.8) K/ul RBC 5.31 (4.70-6.10) M/uL Hgb 15.1 (14.0-18.0) g/dl Hct 47.1 (42.0-52.0) % MCV 88.7 (80.0-100.0) fL MCH 28.4 (25.0-34.0) pg MCHC 32.1 (32.0-36.0) g/dL RDW Std Deviation 52.7 H (36.4-46.3) fL RDW Coeff of Naomie 16.4 H (11.5-14.5) % Plt Count 244 (130-400) K/uL MPV 10.5 (9.4-12.4) fL Immature Gran % (Auto) 0.7 % Neut % (Auto) 68.2 % Lymph % (Auto) 16.9 % [place] % (Auto) 12.0 % Eos % (Auto) 2.0 % Baso % (Auto) 0.2 % Neut # (Auto) 6.62 H (1.40-6.50) K/uL Lymph # (Auto) 1.64 (1.2-3.4) K/uL [place] # (Auto) 1.16 H (0.11-0.59) K/uL Eos # (Auto) 0.19 (0-0.50) K/uL Baso # (Auto) 0.02 (0-0.2) K/uL Immature Gran # (Auto) 0.07 (0.01-0.20) K/uL PT 12.4 H (9.0-12.0) Seconds INR 1.1 (0.9-1.1) VBG pH (7.36-7.41) VBG pCO2 (38-50) mmHg VBG pO2 mmHg VBG HCO3 mmol/L VBG O2 Saturation % VBG Base Excess mEq/L Sodium 134 L (136-145) mmol/L Potassium 6.0 H (3.5-5.1) mmol/L Chloride 98 (98-107) mmol/L Carbon Dioxide 29 (21-32) mmol/L Anion Gap 7 (3-11) BUN 45 H (6-23) mg/dl Creatinine 2.38 H (0.6-1.4) mg/dl Est Cr Clr Drug Dosing Not Reportable Est GFR ( Amer) 32.9 ml/min Est GFR (Non-Af Amer) 28.3 ml/min BUN/Creatinine Ratio 18.9 (10-20) Glucose 135 H (70-99(Fasting)) mg/dl Lactate (0.4-2.0) mmol/L Calcium 9.7 (8.6-10.3) mg/dl Magnesium 2.4 (1.7-2.4) mg/dl Total Bilirubin 1.7 H (0.2-1.0) mg/dl Direct Bilirubin 0.6 H (0-0.2) mg/dl AST 49 H (13-39) U/L ALT 58 H (7-52) U/L Alkaline Phosphatase 123 H (34-104) U/L Troponin I High Sens 13.1 (0-20) pg/ml Total Protein 6.9 (6.0-8.3) gm/dl Albumin 3.8 (3.4-5.0) gm/dl Procalcitonin (0-0.5) ng/ml 11/12/22 11/12/22 11/12/22 Range/Units 11:42 11:42 11:42 WBC (4.8-10.8) K/ul RBC (4.70-6.10) M/uL Hgb (14.0-18.0) g/dl Hct (42.0-52.0) % MCV (80.0-100.0) fL MCH (25.0-34.0) pg MCHC (32.0-36.0) g/dL RDW Std Deviation (36.4-46.3) fL RDW Coeff of Naomie (11.5-14.5) % Plt Count (130-400) K/uL MPV (9.4-12.4) fL Immature Gran % (Auto) % Neut % (Auto) % Lymph % (Auto) % [place] % (Auto) % Eos % (Auto) % Baso % (Auto) % Neut # (Auto) (1.40-6.50) K/uL Lymph # (Auto) (1.2-3.4) K/uL [place] # (Auto) (0.11-0.59) K/uL Eos # (Auto) (0-0.50) K/uL Baso # (Auto) (0-0.2) K/uL Immature Gran # (Auto) (0.01-0.20) K/uL PT (9.0-12.0) Seconds INR (0.9-1.1) VBG pH 7.36 (7.36-7.41) VBG pCO2 55 H (38-50) mmHg VBG pO2 16 mmHg VBG HCO3 31 mmol/L VBG O2 Saturation < 60.0 % VBG Base Excess 4.2 mEq/L Sodium (136-145) mmol/L Potassium (3.5-5.1) mmol/L Chloride (98-107) mmol/L Carbon Dioxide (21-32) mmol/L Anion Gap (3-11) BUN (6-23) mg/dl Creatinine (0.6-1.4) mg/dl Est Cr Clr Drug Dosing Est GFR ( Amer) ml/min Est GFR (Non-Af Amer) ml/min BUN/Creatinine Ratio (10-20) Glucose (70-99(Fasting)) mg/dl Lactate 1.6 (0.4-2.0) mmol/L Calcium (8.6-10.3) mg/dl Magnesium (1.7-2.4) mg/dl Total Bilirubin (0.2-1.0) mg/dl Direct Bilirubin (0-0.2) mg/dl AST (13-39) U/L ALT (7-52) U/L Alkaline Phosphatase (34-104) U/L Troponin I High Sens (0-20) pg/ml Total Protein (6.0-8.3) gm/dl Albumin (3.4-5.0) gm/dl Procalcitonin 0.09 (0-0.5) ng/ml Administered Medications Discontinued Medications Sodium Chloride (Nss 1000ml) 1,000 mls @ 999 mls/hr IV .Q1H1M ONE Stop: 11/12/22 12:51 Last Admin: 11/12/22 12:03 Dose: 999 mls/hr Documented By: KT Imaging Data Radiologist's Impression: Chest X-Ray 11/12/22 11:42 XR chest 1V portable HISTORY: Hypotension. Sepsis COMPARISON: Chest 10/20/2022. FINDINGS: Mild cardiomegaly slightly improved. No pneumothorax. No pleural effusions. No evidence for pulmonary edema. No focal lung consolidations to suggest a pneumonia. IMPRESSION: Mild cardiomegaly. Otherwise, no acute process within the chest. ACT 112: Negative or not required by law. Electronically signed by: Nestor Phillips M.D. 11/12/2022 11:59 AM Discharge Plan Visit Data Chief Complaint: Hypotension Stated Complaint: HYPOTENSION ED Provider: James Jones Discharge Problem: PATRICIA (acute kidney injury) Forms Stand Alone Forms: My [facility] [employer] Prescriptions Prescriptions: No Action Eliquis 5 mg tablet 5 mg PO BID Qty: 180 3RF atorvastatin 20 mg tablet 20 mg PO HS 30 Days Qty: 90 3RF Jardiance 10 mg tablet 10 mg PO DAILY 30 Days Qty: 90 3RF Hold Instructions: Home Medication placed on hold at Doctor's office furosemide [Lasix] 80 mg tablet 80 mg PO BID Qty: 180 3RF Hold Instructions: hold Entresto 24-26 mg tablet 1 tab PO BID Qty: 60 3RF Hold Instructions: Home Medication placed on hold at Doctor's office spironolactone 25 mg tablet 25 mg PO QAM 30 Days Qty: 90 3RF Hold Instructions: Home Medication placed on hold at Doctor's office carvedilol 12.5 mg tablet 6.25 mg PO BIDM 30 Days Qty: 30 0RF potassium chloride 20 mEq Tablet,Er Particles/Crystals 40 meq PO BID 30 Days Qty: 120 0RF Referrals Referrals: Cornelius Berry DO [Primary Care Provider] -
--- NOTE | 2022-11-12 12:01 | XRay Report ---
XR chest 1V portable HISTORY: Hypotension. Sepsis COMPARISON: Chest 10/20/2022. FINDINGS: Mild cardiomegaly slightly improved. No pneumothorax. No pleural effusions. No evidence for pulmonary edema. No focal lung consolidations to suggest a pneumonia. IMPRESSION: Mild cardiomegaly. Otherwise, no acute process within the chest. ACT 112: Negative or not required by law. Electronically signed by: Nestor Phillips M.D. 11/12/2022 11:59 AM
[2022-11-12 12:18] LABS: Basophils # (auto) 0.02 K/uL (0-0.2); Basophils % (auto) 0.2 %; Eosinophils # (auto) 0.19 K/uL (0-0.50); Hematocrit (blood only) 47.1 % (42.0-52.0); Hemoglobin 15.1 g/dl (14.0-18.0); Immature Granulocytes # (auto) 0.07 K/uL (0.01-0.20); Immature Granulocytes % (auto) 0.7 %; Lymphocytes # (auto) 1.64 K/uL (1.2-3.4); Lymphocytes % (auto) 16.9 %; Mean Corpuscular Hemoglobin 28.4 pg (25.0-34.0); Mean Corpuscular Hgb Conc 32.1 g/dL (32.0-36.0); Mean Corpuscular Volume 88.7 fL (80.0-100.0); Mean Platelet Volume 10.5 fL (9.4-12.4); Monocytes # (auto) 1.16 K/uL (0.11-0.59); Neutrophils # (auto) 6.62 K/uL (1.40-6.50); Neutrophils % (auto) 68.2 %; Platelet Count 244 K/uL (130-400); RDW Coefficient of Variation 16.4 % (11.5-14.5); RDW Standard Deviation 52.7 fL (36.4-46.3); Red Blood Count 5.31 M/uL (4.70-6.10)
[2022-11-12 12:31] LABS: Alanine Aminotransferase 58 U/L (7-52); Albumin Level 3.8 gm/dl (3.4-5.0); Alkaline Phosphatase 123 U/L (34-104); Anion Gap 7 (3-11); Aspartate Aminotransferase 49 U/L (13-39); BUN Creatinine Ratio 18.9 (10-20); Bilirubin Direct 0.6 mg/dl (0-0.2); Bilirubin,Total 1.7 mg/dl (0.2-1.0); Blood Urea Nitrogen 45 mg/dl (6-23); Calcium 9.7 mg/dl (8.6-10.3); Carbon Dioxide 29 mmol/L (21-32); Chloride 98 mmol/L (98-107); Est GFR (African American) 32.9 ml/min; Est GFR (Non-African American) 28.3 ml/min; Glucose 135 mg/dl (70-99(Fasting)); Magnesium 2.4 mg/dl (1.7-2.4); Sodium 134 mmol/L (136-145); Total Protein 6.9 gm/dl (6.0-8.3)
[2022-11-12 12:36] LABS: Troponin I High Sensitivity 13.1 pg/ml (0-20)
[2022-11-12] MEDS ORDERED: PATIROMER CALCIUM SORBITEX 8.4 GM PACK PO STA (12:36)
[2022-11-12] MEDS ORDERED: ALBUTEROL 0.5% NEB SOLN 2.5 MG/0.5 ML VIAL NEB STA (12:36)
[2022-11-12] MEDS ORDERED: STAT IV STA (12:36)
[2022-11-12] MEDS ORDERED: DEXTROSE 50% 50 ML SYRINGE IV STA (12:36)
[2022-11-12] MEDS ORDERED: INSULIN HUMAN REGULAR PER UNIT 10 UNITS in SYRINGE 9.9 ML IV STA (12:36)
[2022-11-12] MEDS ORDERED: CALCIUM GLUCONATE 10% 1,000 MG in DEXTROSE 5% 50 ML IV STA (12:36)
[2022-11-12 12:37] LABS: Base Excess VBG 4.2 mEq/L; HCO3 VBG 31 mmol/L; Oxygen Saturation VBG < 60.0 %; PCO2 VBG 55 mmHg (38-50); PO2 VBG 16 mmHg; pH VBG 7.36 (7.36-7.41)
[2022-11-12 12:50] LABS: INR 1.1 (0.9-1.1); Prothrombin Time 12.4 Seconds (9.0-12.0)
[2022-11-12 12:55] LABS: Appearance Urine Clear (Clear); Bilirubin Urine Negative (Negative); Blood Urine Negative (Negative); Color Urine Yellow; Glucose Urine UA 1+ (Negative); Ketones Urine Negative (Negative); Leukocyte Esterase Urine Negative (Negative); Nitrite Urine Negative (Negative); Protein Urine Negative (Negative); Specific Gravity Urine 1.008 (1.000-1.030); Urobilinogen Urine Negative (Negative)
--- NOTE | 2022-11-12 13:14 | History & Physical Report ---
Date of Service November 12, 2022 Assessment & Plan (1) PATRICIA (acute kidney injury): Plan: -Admit to med/tele -Currently afebrile, hemodynamically stable, and stable on RA -Likely multifactorial including hypotension with continued use of entresto, jardiance, and diuretics -Cr today at 2.38, baseline is near 1.2 -S/P IV fluids by EMS and 1L NSS in the ED -Hold additional IV fluids for now and will allow him to eat/drink without a fluid restriction until stable -Hold lasix, spironolactone, potassium chloride, Entresto, and jardiance -Monitor intake/output and daily weights -BL SCD's and Eliquis for DVT PPX -AM CBC, CMP, Mag, PT/INR (2) Hyperkalemia: Plan: -Noted to be 6.0 on arrival -No acute ECG changes -Medical management started in the ED -Will repeat a 4 hour potassium level at 3 pm, continue treatment as needed -Monitor on tele -Hold all diuretics and Potassium supplement at this time (3) Transaminitis: Plan: -Likely due to hypotension and continued atorvastatin use -Hold diuretics, atorvastatin etc as plan in PATRICIA -Patient is asymptomatic and without jaundice -Monitor am CMP (4) Hypotension: Plan: -Due to dehydration from over-diuresis and antihypertensives -Currently BP is at 90/58, patient is currently asymptomatic -Hold antihypertensives and diuretics for now -Will decreased carvedilol to 3.125 mg BID for now to prevent RVR -Will hold additional IV fluids for now, if he has more episodes of hypotension will give small fluid boluses (5) Atrial fibrillation: Plan: -Currently rate controlled -Decreased Carvedilol to 3.125 mg BID for now, may need to be discharged on a smaller dose than 12.5 mg BID -Continue eliquis -Monitor on tele (6) Acute HFrEF (heart failure with reduced ejection fraction): Plan: -Weight today is 245 lbs, was 322 on last discharge, dry weight per Deja Holloway's note today is near 269 -Rest of care per hypotension Plan The patient was discussed with Dr. Wooten at the time of the admission History of Present Illness Chief Complaint: Hypotension Primary Care Provider: DO Donavan Vazquez is a 62 year old male with a PMH significant new onset afib RVR, HFrEF (LVEF of 30-35%, moderate pulmonary hypertension as of 10/21/22), hyperlipidemia, and pre-diabetes who was sent to the [facility] ED from the heart failure clinic today due to hypotension. Per chart review, the patient was recently admitted to [facility] from 10/20-10/23 due to new onset afib RVR and acute on chronic CHF exacerbation. His new afib RVR was thought to be the primary cause of his CHF exacerbation. He was rate controlled on 6.25 mg BID Carvedilol and started on Eliquis for stroke prevention. TTE obtained during the admission showed a LVEF of 30-35%, he was diuresed with 80 mg IV BID lasix and discharged on 80 mg PO lasix BID, low dose Entresto, 25 mg PO spironolactone daily, Jardiance, and atorvastatin. He was also started on BID po KCL due to hypokalemia during his admission. He presented to the CHF clinic today and was seen by Deja Holloway. She had seen him after discharge on 10/29 and had continued his BID 80 mg Lasix and uptitrated his coreg to 12.5 mg BID. Per her note today, the patient weighed 322 on the day of discharge and weighed 245 in clinic today. He was taking his BP at home and noted his systolic BP to be in the 70's at times but was reportedly asymptomatic. In the clinic today they were having difficulty getting a BP reading, he then because lightheaded/dizzy after multiple attempts. He was finally noted to have a BP of 55/35 and ED evaluation was recommended. He was started on IV fluids in the office prior to EMS arrival. In the ED today he was noted to be hypotensive at 80/43, otherwise vitals were stable. Labs were significant for a cr of 2.38 (up from 1.22 as of 10/27), potassium of 6.0, sodium of 134, BUN of 45, total bili of 1.7, direct bili of 0.6, AST of 49, ALT of 58, alk phos of 123, BNP of 683 (down from 1198 as of 10/27). CXR shows mild cardiomegaly otherwise WNL. Prior to admission the patient was given 1L NSS, and given 10 mg albuterol, 1gm IV calcium gluconate, 10 units IV insulin, and 8.4 gm PO Veltassa for his hyperkalemia. At the time of the exam the patient was sitting in bed in no acute distress with his son and [id number] sitting bedside. The patient states he has been feeling well at home. He has been sticking to his low sodium diet and 2L fluid restriction. He has also been taking all medications are prescribed. He notes getting dizzy and diaphoretic today at the CHF clinic once they took his BP. He is currently feeling well and was able to walk to the bathroom without issue. He denies being symptomatic at home despite his recent hypotension. Please refer to Dr. Wooten's attestation for any changes to the treatment plan Allergies Allergy/AdvReac Type Severity Reaction Status Date / Time No Known Allergies Allergy Verified 11/12/22 10:20 Home Medications Medication Instructions Recorded Confirmed Type potassium chloride 20 mEq 40 meq PO BID 30 days #120 tabs 10/23/22 11/12/22 Rx tablet,extended release(part/cryst) apixaban 5 mg tablet (Eliquis) 5 mg PO BID #180 tabs 10/29/22 11/12/22 Rx atorvastatin 20 mg tablet 20 mg PO HS 30 days #90 tabs 10/29/22 11/12/22 Rx empagliflozin 10 mg tablet 10 mg PO DAILY 30 days #90 tabs 10/29/22 11/12/22 Rx (Jardiance) furosemide 80 mg tablet (Lasix) 80 mg PO BID #180 tabs 10/29/22 11/12/22 Rx sacubitril 24 mg-valsartan 26 mg 1 tab PO BID #60 tabs 10/29/22 11/12/22 Rx tablet (Entresto) spironolactone 25 mg tablet 25 mg PO QAM 30 days #90 tabs 10/29/22 11/12/22 Rx carvedilol 12.5 mg tablet 12.5 mg PO BIDM 11/12/22 11/12/22 History Past Med/Surg History Medical History (Updated 11/12/22 @ 13:36 by Xander Holden PA-C) Acute HFrEF (heart failure with reduced ejection fraction) Atrial fibrillation with RVR Cardiomyopathy Dyslipidemia No pertinent past medical history Pulmonary hypertension Right ACL tear Surgical History (Updated 10/21/22 @ 17:40 by Sachin Cummings MD) H/O anterior cruciate ligament surgery Social History Smoking Status: Never smoker Tobacco Type: Smokeless Tobacco (Dip or Chew) Do You Dip or Chew Tobacco: Yes; Hx Alcohol Use: Yes Alcohol type: wine Alcohol type Comment: socially Hx Substance Use: No Preferred Language: Italian Communication Ability: Effective 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 Beliefs That Will Affect Care: None Current Living Situation: Alone Feels Safe at Home: Yes Assistive Devices: None Physical Exam Physical Exam: Physical Exam: General: In no acute distress, stated age, well-nourished, good hygiene HEENT: Normocephalic, atraumatic, no scleral icterus, pupils around round, symmetrical, and reactive to light, dry mucus membranes, No JVD, trachea midline, no thyromegaly Chest/Pulm: No respiratory distress, symmetrical chest expansion, clear breath sounds throughout Cardiac: irregular rate and rhythm, no murmurs noted Abdomen: Negative for ascites and bruising, normoactive bowel sounds, soft, non-tender to palpation throughout Musculoskeletal: Symmetrical and without signs of acute trauma, upper and lower extremities with full ROM, no atrophy, spasticity, or flaccidity Extremities: Radial, dorsalis pedis, and posterior tibial pulses are intact and symmetrical, no edema noted in the BL LE's Skin: Warm, dry, no rashes , lesions, or scars noted Neuro: Alert and oriented to person, place, month, year, and president, no focal defects, no tremors noted Psych: No acute distress, calm and cooperative during the exam Results & Data Results & Data Vital Signs (Past 12 Hours) Vital Signs Temp Pulse Pulse Resp BP BP Pulse Ox 11/12/22 12:33 87 18 90/58 L 95 11/12/22 12:29 87 11/12/22 11:48 75 95 11/12/22 11:47 36.3 C L 72 18 95 11/12/22 11:41 36.3 C L 72 18 95 11/12/22 11:41 95 11/12/22 11:35 36.3 C L 72 18 80/43 L 95 O2 Del Method O2 Flow Rate 11/12/22 12:33 11/12/22 12:29 11/12/22 11:48 Room Air 11/12/22 11:47 Room Air 11/12/22 11:41 Room Air 11/12/22 11:41 Room Air 0 11/12/22 11:35 Room Air Laboratory Results Abnormal lab results 11/12/22 11/12/22 11/12/22 Range/Units 11:42 11:42 11:42 RDW Std Deviation 52.7 H (36.4-46.3) fL RDW Coeff of Naomie 16.4 H (11.5-14.5) % Neut # (Auto) 6.62 H (1.40-6.50) K/uL [place] # (Auto) 1.16 H (0.11-0.59) K/uL PT 12.4 H (9.0-12.0) Seconds VBG pCO2 (38-50) mmHg Sodium (136-145) mmol/L Potassium (3.5-5.1) mmol/L BUN (6-23) mg/dl Creatinine (0.6-1.4) mg/dl Glucose (70-99(Fasting)) mg/dl Total Bilirubin (0.2-1.0) mg/dl Direct Bilirubin (0-0.2) mg/dl AST (13-39) U/L ALT (7-52) U/L Alkaline Phosphatase (34-104) U/L B-Natriuretic Peptide 683 H (0-100) pg/ml Urine Glucose (UA) (Negative) 11/12/22 11/12/22 11/12/22 Range/Units 11:42 11:42 Unknown RDW Std Deviation (36.4-46.3) fL RDW Coeff of Naomie (11.5-14.5) % Neut # (Auto) (1.40-6.50) K/uL [place] # (Auto) (0.11-0.59) K/uL PT (9.0-12.0) Seconds VBG pCO2 55 H (38-50) mmHg Sodium 134 L (136-145) mmol/L Potassium 6.0 H (3.5-5.1) mmol/L BUN 45 H (6-23) mg/dl Creatinine 2.38 H (0.6-1.4) mg/dl Glucose 135 H (70-99(Fasting)) mg/dl Total Bilirubin 1.7 H (0.2-1.0) mg/dl Direct Bilirubin 0.6 H (0-0.2) mg/dl AST 49 H (13-39) U/L ALT 58 H (7-52) U/L Alkaline Phosphatase 123 H (34-104) U/L B-Natriuretic Peptide (0-100) pg/ml Urine Glucose (UA) 1+ H (Negative) Diagnostic Findings Chest X-Ray 11/12/22 11:42 XR chest 1V portable HISTORY: Hypotension. Sepsis COMPARISON: Chest 10/20/2022. FINDINGS: Mild cardiomegaly slightly improved. No pneumothorax. No pleural effusions. No evidence for pulmonary edema. No focal lung consolidations to suggest a pneumonia. IMPRESSION: Mild cardiomegaly. Otherwise, no acute process within the chest. ACT 112: Negative or not required by law. Electronically signed by: Nestor Phillips M.D. 11/12/2022 11:59 AM ECG Additional Comments: Rate controlled afib, no acute ST segment or T-wave changes Code Status & VTE Plan Code Status Full code VTE Prophylaxis Plan VTE Prophylaxis will be ordered: Yes Supervising Physician Co-Signing Physician Notes I personally saw and examined the patient. I verified all ramirez points and agree with Xander Holden PA-C with the following exceptions and/or additions: 62 year old male with recently diagnosed CHF and a. fib RVR presents to the ER with presyncopal episode in the cardiology office with hypotension. 80lb of weight loss since diagnosed with CHF on October 20. Shortness of breath and general energy appears much improved. Denies any presyncopal or syncopal epi sodes prior to today. O/E A&Ox3, HS irregular rhythm, regular rate, Chest CTAB, Abdo SNT, 1+ b/l pitting edema equal b/l A/P PATRICIA - secondary to hypotension with overdiuresis and likely on too many antihypertensives now he has had significant weight loss and more euvolemic. Will discontinue all his antihypertensives. Restart carvedilol tomorrow @ 3.125mg PO BID and monitor for RVR overnight to see if this needs to be restarted sooner. Hypotension - will continue to bolus IV fluids as needed, lactate reassuringly normal therefore suspect transient very low BP in office somewhat vagally mediated. Chronic congestive heart failure with reduced ejection fraction - Holding medications as above. Significantly improved since last admission. A. fib RVR - continue anticoagulation with Eliquis, monitor rates on telemetry as we adjust his BB Acute hyperkalemia - secondary to potassium supplementation and spironolactone use in setting of PATRICIA. Insulin/dextrose, Valtessa and NSS bolus. Should improve with PATRICIA treatment and stopping precipitating medications. PG Care Time/CCT Total # of Minutes Spent Total Time Spent with Patient: Total time spent is greater than 50% in coordination of care (as documented) at patient's floor/unit and/or counseling patient: Coding [place] [address] INT INP/OBS CARE 3/75MIN Patient Type Established Medical Decision Making Moderate Complexity Diagnoses PATRICIA (acute kidney injury) N17.9 Hyperkalemia E87.5 Transaminitis R74.01 Hypotension I95.9 Atrial fibrillation I48.91 Acute HFrEF (heart failure with reduced ejection fraction) I50.21
[2022-11-12] MEDS ORDERED: NovoLIN-R INSULIN PER UNIT CHARGE ONE (13:47)
[2022-11-12] MEDS ORDERED: SODIUM CHLORIDE 0.9% 1000ML 500 ML IV ONE (14:43)
[2022-11-12] MEDS ORDERED: LACTATED RINGER'S 500 ML IV ONE (14:45)
[2022-11-12] MEDS ORDERED: PNEUMOCOCCAL POLYSACCHARIDES 25 MCG/0.5 ML VIAL/SYR IM ONE (16:42)
[2022-11-12] MEDS ORDERED: carvediloL 3.125 MG TAB PO SCH ×2 (17:00)
[2022-11-12] MEDS: APIXABAN 5 MG TABLET PO SCH (20:02)
[2022-11-13 07:46] LABS: Hematocrit (blood only) 44.5 % (42.0-52.0); Mean Corpuscular Hemoglobin 28.6 pg (25.0-34.0); Mean Corpuscular Hgb Conc 33.7 g/dL (32.0-36.0); Mean Corpuscular Volume 84.9 fL (80.0-100.0); Mean Platelet Volume 10.2 fL (9.4-12.4); Platelet Count 207 K/uL (130-400); RDW Coefficient of Variation 16.4 % (11.5-14.5); RDW Standard Deviation 50.6 fL (36.4-46.3); Red Blood Count 5.24 M/uL (4.70-6.10); White Blood Count 6.36 K/ul (4.8-10.8)
[2022-11-13] MEDS ORDERED: SODIUM CHLORIDE 0.9% 1000ML 250 ML IV ONE (07:54)
[2022-11-13 07:55] LABS: INR 1.1 (0.9-1.1)
[2022-11-13] MEDS: APIXABAN 5 MG TABLET PO SCH (08:00)
--- NOTE | 2022-11-13 08:02 | Hospitalist Progress Note ---
Date of Service November 13, 2022 Assessment & Plan (1) PATRICIA (acute kidney injury): Plan: Likely multifactorial including hypotension with continued use of Entresto, Jardiance, and diuretics after recent hospitalization for afib RVR w/ acute CHF (new diagnosis) and presented to CHF clinic for follow up with blood pressure 55/35 with patient reporting feeling lightheaded/diaphoretic and near syncope Cr elevated to 2.38 w/ baseline closer to 1.2 Given 1L NSS in ER, 1L LR bolus last evening Holding diuretics, reduced dose of carvedilol to prevent hypotension but prevent afib/RVR today at 2.38, baseline is near 1.2 -S/P IV fluids by EMS and 1L NSS in the ED -Hold additional IV fluids for now and will allow him to eat/drink without a fluid restriction until stable -Hold lasix, spironolactone, potassium chloride, Entresto, and jardiance -Monitor intake/output and daily weights -BL SCD's and Eliquis for DVT PPX -AM CBC, CMP, Mag, PT/INR (2) Hyperkalemia: Plan: -Noted to be 6.0 on arrival -No acute ECG changes -Medical management started in the ED -Will repeat a 4 hour potassium level at 3 pm, continue treatment as needed -Monitor on tele -Hold all diuretics and Potassium supplement at this time (3) Transaminitis: Plan: -Likely due to hypotension and continued atorvastatin use -Hold diuretics, atorvastatin etc as plan in PATRICIA -Patient is asymptomatic and without jaundice -Monitor am CMP (4) Hypotension: Plan: -Due to dehydration from over-diuresis and antihypertensives -Currently BP is at 90/58, patient is currently asymptomatic -Hold antihypertensives and diuretics for now -Will decreased carvedilol to 3.125 mg BID for now to prevent RVR -Will hold additional IV fluids for now, if he has more episodes of hypotension will give small fluid boluses (5) Atrial fibrillation: Plan: -Currently rate controlled -Decreased Carvedilol to 3.125 mg BID for now, may need to be discharged on a smaller dose than 12.5 mg BID -Continue eliquis -Monitor on tele (6) Acute HFrEF (heart failure with reduced ejection fraction): Plan: -Weight today is 245 lbs, was 322 on last discharge, dry weight per Deja Holloway's note today is near 269 -Rest of care per hypotension Plan The patient was discussed with Dr. Wooten at the time of the admission Admission and Anticipated Discharge Date Admission Date: November 12, 2022 Results & Data Results & Data Vital Signs (Past 12 Hours) Vital Signs Temp Pulse Pulse Resp BP BP Pulse Ox 11/13/22 07:48 36.3 C L 79 18 80/52 L 96 11/13/22 07:23 36.6 C 73 18 90/62 L 85/52 L 95 11/13/22 07:12 77 11/13/22 04:02 36.6 C 57 L 18 108/63 97 11/12/22 23:05 36.8 C 86 18 95/58 L 96 11/12/22 22:00 77 O2 Del Method 11/13/22 07:48 Room Air 11/13/22 07:23 Room Air 11/13/22 07:12 11/13/22 04:02 Room Air 11/12/22 23:05 Room Air 11/12/22 22:00 PG Care Time/CCT Total # of Minutes Spent Total Time Spent with Patient: Total time spent is greater than 50% in coordination of care (as documented) at patient's floor/unit and/or counseling patient: Coding Diagnoses PATRICIA (acute kidney injury) N17.9 Hyperkalemia E87.5 Transaminitis R74.01 Hypotension I95.9 Atrial fibrillation I48.91 Acute HFrEF (heart failure with reduced ejection fraction) I50.21
[2022-11-13 08:18] LABS: Albumin Level 3.6 gm/dl (3.4-5.0); Bilirubin,Total 1.7 mg/dl (0.2-1.0); Calcium 9.2 mg/dl (8.6-10.3); Magnesium 2.1 mg/dl (1.7-2.4); Potassium 4.6 mmol/L (3.5-5.1)
[2022-11-13 08:24] LABS: Albumin Globulin Ratio 1.2 (0.9-2); BUN Creatinine Ratio 23.8 (10-20); Creatinine Clr Calc Pharmacy 59.6 ml/min; Est GFR (African American) 51.5 ml/min; Est GFR (Non-African American) 44.5 ml/min; Globulin 2.9 gm/dl (2.5-4.0); Total Protein 6.5 gm/dl (6.0-8.3)
[2022-11-13] MEDS ORDERED: carvediloL 3.125 MG TAB PO SCH (09:00)
--- NOTE | 2022-11-13 10:23 | Discharge Summary ---
Date of Service November 13, 2022 Admission HPI Per Admitting Provider Donavan is a 62 year old male with a H significant new onset afib RVR, HFrEF (LVEF of 30-35%, moderate pulmonary hypertension as of 10/21/22), hyperlipidemia, and pre-diabetes who was sent to the [facility] ED from the heart failure clinic today due to hypotension. Per chart review, the patient was recently admitted to [facility] from 10/20-10/23 due to new onset afib RVR and acute on chronic CHF exacerbation. His new afib RVR was thought to be the primary cause of his CHF exacerbation. He was rate controlled on 6.25 mg BID Carvedilol and started on Eliquis for stroke prevention. TTE obtained during the admission showed a LVEF of 30-35%, he was diuresed with 80 mg IV BID lasix and discharged on 80 mg PO lasix BID, low dose Entresto, 25 mg PO spironolactone daily, Jardiance, and atorvastatin. He was also started on BID po KCL due to hypokalemia during his admission. He presented to the CHF clinic today and was seen by Deja Smith. She had seen him after discharge on 10/29 and had continued his BID 80 mg Lasix and uptitrated his coreg to 12.5 mg BID. Per her note today, the patient weighed 322 on the day of discharge and weighed 245 in clinic today. He was taking his BP at home and noted his systolic BP to be in the 70's at times but was reportedly asymptomatic. In the clinic today they were having difficulty getting a BP reading, he then because lightheaded/dizzy after multiple attempts. He was finally noted to have a BP of 55/35 and ED evaluation was recommended. He was started on IV fluids in the office prior to EMS arrival. In the ED today he was noted to be hypotensive at 80/43, otherwise vitals were stable. Labs were significant for a cr of 2.38 (up from 1.22 as of 10/27), potassium of 6.0, sodium of 134, BUN of 45, total bili of 1.7, direct bili of 0.6, AST of 49, ALT of 58, alk phos of 123, BNP of 683 (down from 1198 as of 10/27). CXR shows mild cardiomegaly otherwise WNL. Prior to admission the patient was given 1L NSS, and given 10 mg albuterol, 1gm IV calcium gluconate, 10 units IV insulin, and 8.4 gm PO Veltassa for his hyperkalemia. At the time of the exam the patient was sitting in bed in no acute distress with his son and [id number] sitting bedside. The patient states he has been feeling well at home. He has been sticking to his low sodium diet and 2L fluid restriction. He has also been taking all medications are prescribed. He notes getting dizzy and diaphoretic today at the CHF clinic once they took his BP. He is currently feeling well and was able to walk to the bathroom without issue. He denies being symptomatic at home despite his recent hypotension. Please refer to Dr. Wooten's attestation for any changes to the treatment plan Admission Exam Per Admitting Provider Physical Exam: General:In no acute distress, stated age, well-nourished, good hygiene HEENT:Normocephalic, atraumatic, no scleral icterus, pupils around round, symmetrical, and reactive to light, dry mucus membranes, No JVD, trachea midline, no thyromegaly Chest/Pulm:No respiratory distress, symmetrical chest expansion, clear breath sounds throughout Cardiac:irregular rate and rhythm, no murmurs noted Abdomen:Negative for ascites and bruising, normoactive bowel sounds, soft, non-tender to palpation throughout Musculoskeletal:Symmetrical and without signs of acute trauma, upper and lower extremities with full ROM, no atrophy, spasticity, or flaccidity Extremities:Radial, dorsalis pedis, and posterior tibial pulses are intact and symmetrical, no edema noted in the BL LE's Skin:Warm, dry, no rashes , lesions, or scars noted Neuro:Alert and oriented to person, place, month, year, and president, no focal defects, no tremors noted Psych:No acute distress, calm and cooperative during the exam Principal Diagnosis Hypotension, PATRICIA Discharge Exam General: WD male sitting up in bed, dressed, hopeful for discharge, NAD and reported just walking the halls without symptoms HEENT: head normocephalic, atraumatic, mmm, trachea midline, thick neck Resp: CTA, no w/c/r, 97% on RA CV: irregularly irregular (rates 70s-80s on monitor), no significant m/r/g, no pitting edema, pulses palpable GI: +BS, soft/NT : no galvin MSK/Neuro: no focal deficit, no slurred speech. moves all extremities, follows commands Psych: AOx3, cooperative and hopeful for discharge Discharge Data Allergies Allergy/AdvReac Type Severity Reaction Status Date / Time No Known Allergies Allergy Verified 11/12/22 10:20 Consultations 11/12/22 12:47 ED Decision to Admit Stat 11/13/22 08:30 [facility] Referral Routine Ordered Studies Chest X-Ray 11/12/22 11:42 XR chest 1V portable HISTORY: Hypotension. Sepsis COMPARISON: Chest 10/20/2022. FINDINGS: Mild cardiomegaly slightly improved. No pneumothorax. No pleural effusions. No evidence for pulmonary edema. No focal lung consolidations to suggest a pneumonia. IMPRESSION: Mild cardiomegaly. Otherwise, no acute process within the chest. ACT 112: Negative or not required by law. Electronically signed by: Nestor Phillips M.D. 11/12/2022 11:59 AM Hospital Course (1) PATRICIA (acute kidney injury): Likely multifactorial including hypotension with continued use of Entresto, Jardiance, and diuretics after recent hospitalization for afib RVR w/ acute CHF (new diagnosis) and presented to CHF clinic for follow up with blood pressure 55/35 with patient reporting feeling lightheaded/diaphoretic and near syncope Cr elevated to 2.38 w/ baseline closer to 1.2 Given 1L NSS in ER, 1L LR bolus last evening on admission and BUN/Cr improved to 39/1.64 Given additional 250cc NSS bolus this morning for lower BPs but asymptomatic and avoided further IVF. Encouraged PO intake Held his Entresto, Jardiance, Spironolactone, and Lasix and CHF clinic consulted Reduced dose carvedilol 3.125mg BID w/ hold parameters (HRs stable on reduced dose at this time) Discussed w/ CHF provider and supervising physician and given BPs improved and 118/80 this afternoon and repeat BUN/Cr continued improvement and patient hopeful for discharge. Instructed to continue to hold his diuretics at discharge and continue his eliquis BID and reduced carvedilol but to monitor BPs at home and ALERT OFFICE IF CONTINUED LOWS for further adjustments. Decision to continue tohold his Entresto, Jardiance, Spironolactone, lasix at discharge over the weekend and have repeat labs for patient on Wednesday w/ office visit with Loren Smith and they can determine timing to resume medications pending weights/repeat labs. Patient instructed to monitor for any significant weight gain at home and can consider lasix 40mg prn for weight gain but would ideally be off meds until repeat labs/resolution of PATRICIA. Making good urine. (2) Hyperkalemia: 6 on arrival, was given valtessa at CHF office, repeat dosing in ER and repeat K 4.7 Continued to hold his potassium supplementation and diuretics at discharge Repeating labs for wednesday Remained Afib w/ rates in 70-80s on monitor (3) Transaminitis: Likely due to hypotension and continued atorvastatin use , hypotension No granular casts on UA, no jaundice on exam. SUspect 2nd to dehydration/diuretic and statin use Held statin, LFTs improving Hold statin over weekend, can resume on Wednesday (4) Hypotension: Due to dehydration from over-diuresis and antihypertensives . IVF in ER, on admit. Given 250cc NSS bolus this morning for BPs 80s systolic but was asymptomatic Reduced dose carvedilol as above, diuretics held BPs improved, 118/80 prior to discharge Hold diuretics as outlined above until follow up on Wednesday/repeat labs (5) Atrial fibrillation: Rate controlled Remained on eliquis 5mg BID Carvedilol dose reduced and HRs stable. To continue to monitor for elevations at home Outpt f/u (6) Acute HFrEF (heart failure with reduced ejection fraction): Weight on admit 245 lbs, was 322 on last discharge, dry weight per Deja Smith's note today is near 269 Tx as outlined above Planning repeat ECHO in next 2 weeks outpatient No volume overload, CXR clear Will eventually need ischemic work up Plan Discussed keeping overnight additional day but patient preferred discharge today. Discussed w/ supervising provider and CHF clinic provider and given improvement in BUN/Cr and moving in right direction and BPs improved/no further symptoms, stable for dc on lower dose carvedilol for now and holding diuretics with repeat labs on Wednesday and re-eval in office with Loren Smith. Rx sent for reduced dose carvedilol 3.125mg BID To monitor BPs at home and alert/return to ER if any continued h ypotension/tachycardia Total Time Total Time Spent Total Time Spent (In Minutes): 40 Discharge Plan Discharge Items Patient Disposition: Home - Self-Care Reason For Visit: HYPOTENSION Discharge Diagnosis: PATRICIA, Hypotension Goals: You have been hospitalized for an acute medical problem. During your stay at [facility], we have made an effort to correct the problem that brought you to the hospital while keeping you as comfortable as possible. Medications were used to bring your condition under control and your discharge instructions will include directions for any medications you should take after leaving the hospital. Please make sure you see your Primary Care Provider as part of your follow up plan. Activity: Resume your previous activity Non-emergency contact: Primary Care Provider and Ammonium Nitrate Neutralizer Call non-emergency contact if: you have any medication questions, your symptoms worsen and you have a fever Follow-up/Referrals: Cornelius Berry DO [Primary Care Provider] - Deja Smith PA-C [Physician Gas Flow Regulator] - 11/16/22 10:30 am Diet: Heart Healthy and Low Sodium (2gm) Ambulatory Orders: Basic Metabolic Panel (Routine) Timeframe: 20221116 Location: Determined by Patient Ordered By: Barbara Casper Magnesium (Routine) Timeframe: 20221116 Location: Determined by Patient Ordered By: Barbara Casper Addtl Attending Provider Instructions: You have been hospitalized for an acute kidney injury and hypotension (low blood pressures) likely from your outpatient diuretics for heart failure. You were provided IV fluids and these medications were held and discussion was undertaken with Deja Smith from the heart failure clinic and we would like you to continue to hold these medications (furosemide, potassium chloride, entresto, spironolactone, Jardiance) in the meantime over the weekend and we will have repeat labs in for Wednesday and close follow up with her to re-assess ability to resume medications and timing for such. We are to have you continue your eliquis twice daily as well as carvedilol but have decreased the carvedilol to 3.125mg twice daily. You should monitor your weights at home and call the cardiology office if any significant weight gain, shortness of breath occurs or elevated heart rate. If this occurs, they may recommend taking 40 mg of lasix instead of the 80mg in the meantime. You should monitor your blood pressures at home and notify provider if systolic blood pressure (top number) is less than 100 consistently or if you develop any lightheadedness/dizziness. Please follow up with primary care as well in the next 7-10 days after discharge to monitor your progress after discharge from the hospital. Please return to the ER with any recurrence of lightheadedness/dizziness, chest pain, shortness of breath, or for any other symptoms concerning for you. It has been a pleasure being a part of the medical team providing for you while you have been in the hospital. Take care! Addtl Lathe Puller Provider Instructions: Call 911 and go to the Emergency Room if: * You have tightness or pain in your chest that does not go away with rest or Nitroglycerin * You are very short of breath even with rest Call your doctor if any of the following symptoms or problems start or get worse: * Shortness of breath or difficulty breathing * Wake up at night short of breath * Chest pain * Cough * Swelling of your hands, fee, or legs * More fatigued or tired with your normal activity * Palpitations - sudden fast heart beats WEIGHT * Weigh yourself every morning after using the bathroom. * Use the same scale. * Wear the same amount of clothing. * Write your weight down on your chart. * Call your doctor if you gain more than 2-3 pounds in 1-2 days. MEDICATIONS * Use this discharge instruction sheet for instructions. * Take your medications at the time your doctor ordered. * Do not skip a dose of your medicines. * If you miss a dose of medicine, take as soon as possible, but DO NOT DOUBLE A DOSE. * Read your medicine information when you get home. * Know all of the side effects of your medicine. * Call your doctor's office if you have any side effects. * Be sure all of your doctors know what medicine and herbs you take (including cold, flu, and herbal medicine). * Pain Medicine: If you do not get relief from your pain, please call your doctor for help. Take the following with you to your follow-up doctor appointments: * Weight Chart * Medication List * List of questions Do not drink excessive alcohol, beer or wine. Pending Studies at Discharge: No Stand-Alone Forms: My OnBeep, Smoking Cessation Medications and DC Order Prescriptions: New carvedilol 3.125 mg Tablet 3.125 mg PO BIDM Qty: 60 0RF Continued Eliquis 5 mg tablet 5 mg PO BID Qty: 180 3RF Held atorvastatin 20 mg tablet 20 mg PO HS 30 Days Qty: 90 3RF Hold Instructions: Resume on 11/16/22. until seen by cards Jardiance 10 mg tablet 10 mg PO DAILY 30 Days Qty: 90 3RF Hold Instructions: Resume on 11/17/22. hold until seen by CHF clinic in follow up furosemide [Lasix] 80 mg tablet 80 mg PO BID Qty: 180 3RF Hold Instructions: Resume on 11/17/22. hold until seen by CHF clinic in follow up Entresto 24-26 mg tablet 1 tab PO BID Qty: 60 3RF Hold Instructions: Resume on 11/17/22. hold until seen by CHF clinic in follow up spironolactone 25 mg tablet 25 mg PO QAM 30 Days Qty: 90 3RF Hold Instructions: Resume on 11/17/22. hold until seen by CHF clinic in follow up potassium chloride 20 mEq Tablet,Er Particles/Crystals 40 meq PO BID 30 Days Qty: 120 0RF Hold Instructions: Resume on 11/17/22. Discontinued carvedilol 12.5 mg tablet 12.5 mg PO BIDM Discharge Orders: Discharge Order (Routine); Ordered 11/13/22 Ordered By: Barbara Casper Admission Data Admit Date/Time: 11/12/22 13:14 Attending Provider: Duane Calixto Admit Provider: Kolton Wooten Primary Care Provider: Cornelius Berry Other Providers: Kolton Wooten ; Deja Smith Other Interventions: Discharge Summary Assessment (RN) Last Done: 11/13/22 15:54 Supervising Physician Co-Signing Physician Notes The patient was seen by me. The chart was reviewed. Case discussed with CONSUELO Marcial. Agree with assessment and plan. He will be discharged home later today, 11/13 Coding Level of Care Code 78524 INP/OBS DISCH >30 MIN Diagnoses PATRICIA (acute kidney injury) N17.9 Hyperkalemia E87.5 Transaminitis R74.01 Hypotension I95.9 Atrial fibrillation I48.91 Acute HFrEF (heart failure with reduced ejection fraction) I50.21
--- NOTE | 2022-11-13 12:00 | Heart Failure Consultation ---
Date of Consultation November 13, 2022 Assessment & Plan (1) Acute HFrEF (heart failure with reduced ejection fraction): (2) Atrial fibrillation with RVR: (3) Cardiomyopathy: (4) Pulmonary hypertension: (5) Hypokalemia: (6) Elevated troponin: Plan ASSESSMENT/PLAN: 1. Acute heart failure with reduced EF: Admitted with hypovolemia and PATRICIA due to overdiuresis. Patient feeling improved today. Remains hypotensive but is asymptomatic. Would prefer to avoid additional IVF as long as he remains asymptomatic. Would recommend manual BP checks moving forward. Continue to hold Lasix. Will follow closely over the next few days and only resume if he starts gaining significant weight, dyspnea, or edema. Would recommend Lasix 40 mg PRN on discharge. Continue to hold Entresto, Jardiance, Spironolactone at discharge due to PATRICIA. Can attempt to cautiously resume these meds as outpatient once his BP and kidney function normalizes. Continue daily standing weights. Continue low sodium diet. Would liberalize fluid intake. 2. Atrial fibrillation: Initially with RVR, which likely contributed to heart failure and cardiomyopathy. Heart rate well controlled on Carvedilol 3.125 mg BID. He is asymptomatic. Agree with anticoagulation therapy for stroke risk reduction.He would like to avoid more aggressive measures at this time. Depending on clinical course, cardioverting to sinus rhythm may improve heart failure symptoms. He is open to ongoing discussions but would prefer to hold off for now. 3. Cardiomyopathy: Possibly tachycardia induced, but cannot exclude ischemic heart disease. He prefers medical therapy for now. No urgent indication for cardiac catheterization. Cardiac cath was considered an discussed on initial consultation. He would like to to pursue medical therapy and then can reconsider ischemic evaluation if LV systolic function does not improve. Once optimized on medical therapy, if no significant improvement in LV systolic function, could qualify for ICD for primary prevention in the future. Plan to repeat limited echo in 2 weeks. 4. Pulm hypertension: Likely due to hypervolemic state. Repeat echo once optimized. 5. Hypokalemia: Hyperkalemic on admission, likely secondary to PATRICIA. Now normalized. Continue to hold Spironolactone/Entresto. Close lab monitoring if resumed. Disposition: Cardiology will continue to follow. Patient is anxious for discharge. If BP continues to improve and repeat labs trending in the right direction would be reasonable to consider discharge later today. Patient is scheduled for close outpatient follow up 11/16/22. He should have labs drawn prior to his visit. History of Present Illness Attending Physician: Duane Calixto MD History of Present Illness Mr. Jaeger is a very pleasant 62-year-old gentleman with HFrEF, cardiomyopathy, atrial fibrillation, pulmonary hypertension, hypokalemia. Dr. Howell is his primary floorman. Recent cardiac studies: 1. 10/21/22 Echo: Moderate dilated LV with moderately reduced EF. 30-35%. Global hypokinesis. Mild LVH. RV with moderate to severely reduced systolic function. Severe left atrial dilation. Mild MR. Moderate pHTN. RVSP 53 mmHg. Afib. He was admitted on 10/20/2022 after presenting with increased dyspnea on exertion and edema. He was found to be in atrial fibrillation with rapid ventricular response and felt to be in heart failure. CXR with cardiomegaly and pulmonary edema. BNP 775. LE Doppler negative. Rate controlled with Carvedilol. He responded well to diuretics. Initiated on Entresto, Spironolactone, Eliquis, Jardiance, statin. He was discharged on Lasix 80 mg BID. He was initially evaluated on 10/29/22. Her was hypervolemic but responding well to diuretics. Kidney function and electrolytes WNL. Continue Lasix 80 mg BID. Carvedilol increased to 12.5 mg BID. Dry weight 269 lb. He was most recently evaluated on 11/12/22 in the office. He was feeling well upon arrival to the office but became more symptomatic during his visit. He was significantly hypotensive and was transported to the ED via EMS. Patient with ongoing hypotension and PATRICIA/hyperkalemia noted in the ED. He was treated with IV fluids and admitted for further observation. Entresto, Jardiance, Spironolactone, and Lasix were held. Carvedilol lowered to 3.125 mg BID. Patient is feeling significantly improved today. BPs remain low, systolics 80s/90s however he is asymptomatic. He did have another 250cc of fluids this am. He has been ambulating in his room without difficulty. He has no lower extremity edema. He denies shortness of breath, orthopnea, or PND. He is anxious to go home. He denies chest pain, palpitations, or cough. Telemetry reviewed- afib in the 80s. Family history:No known premature CAD. Mother and brother had atrial fibrillation. Social history:He denies smoking or drug abuse. Occasional alcohol. He is . He lives alone. He has 2 children. A son is a physician certified physician assistant for [employer]. His [id number] is Alison Jaeger (Davis), a cardiology PA with [employer]. He was alone in his hospital room. Allergies Allergy/AdvReac Type Severity Reaction Status Date / Time No Known Allergies Allergy Verified 11/12/22 10:20 Home Medications Medication Instructions Recorded Confirmed Type potassium chloride 20 mEq 40 meq PO BID 30 days #120 tabs 10/23/22 11/12/22 Rx tablet,extended release(part/cryst) apixaban 5 mg tablet (Eliquis) 5 mg PO BID #180 tabs 10/29/22 11/12/22 Rx atorvastatin 20 mg tablet 20 mg PO HS 30 days #90 tabs 10/29/22 11/12/22 Rx empagliflozin 10 mg tablet 10 mg PO DAILY 30 days #90 tabs 10/29/22 11/12/22 Rx (Jardiance) furosemide 80 mg tablet (Lasix) 80 mg PO BID #180 tabs 10/29/22 11/12/22 Rx sacubitril 24 mg-valsartan 26 mg 1 tab PO BID #60 tabs 10/29/22 11/12/22 Rx tablet (Entresto) spironolactone 25 mg tablet 25 mg PO QAM 30 days #90 tabs 10/29/22 11/12/22 Rx carvedilol 3.125 mg tablet 3.125 mg PO BIDM #60 tabs 11/13/22 Rx Patient History Medical History (Updated 11/12/22 @ 13:36 by Xander Holden PA-C) Acute HFrEF (heart failure with reduced ejection fraction) Atrial fibrillation with RVR Cardiomyopathy Dyslipidemia No pertinent past medical history Pulmonary hypertension Right ACL tear Surgical History (Updated 10/21/22 @ 17:40 by Sachin Cummings MD) H/O anterior cruciate ligament surgery Social History Smoking Status: Never smoker Tobacco Type: Smokeless Tobacco (Dip or Chew) Do You Dip or Chew Tobacco: Yes; Hx Alcohol Use: Yes Alcohol type: wine Alcohol type Comment: socially Hx Substance Use: No Preferred Language: Albanian Communication Ability: Effective Border Measurer Required: No Beliefs That Will Affect Care: None Current Living Situation: Alone Current Living Situation Comment: patient has son and daughter that live nearby Feels Safe at Home: Yes Safety Concerns: Feels Safe At This Time Assistive Devices: None Physical Exam Physical Exam: Gen.: No acute distress. Alert and oriented. HEENT: Anicteric sclera. Neck: No obvious JVD. - HJR Cardiac: No ventricular heave. Irregularly irregular. Normal heart rate. Normal S1-S2. No murmurs, rubs, or gallops. Pulmonary: Normal respiratory effort. Clear to auscultation bilaterally without wheezes, rales, or rhonchi. Abdomen: Soft, nontender, nondistended, with normoactive bowel sounds. No bruits noted. Extremities: 2+ radial pulses bilaterally. 2+ posterior tibialis pulses bilaterally. No bilateral lower extremity edema. No cyanosis. Right thigh with scar and varicosities (chronic s/p hemangioma resection). Psychiatric: Affect appears appropriate. Results & Data Vital Signs (Past 12 Hours) Vital Signs Temp Pulse Pulse Resp BP BP Pulse Ox 11/13/22 08:35 88/56 L 11/13/22 07:48 97.3 F L 79 18 80/52 L 96 11/13/22 07:23 97.9 F 73 18 90/62 L 85/52 L 95 11/13/22 07:12 77 11/13/22 04:02 97.9 F 57 L 18 108/63 97 O2 Del Method 11/13/22 08:35 11/13/22 07:48 Room Air 11/13/22 07:23 Room Air 11/13/22 07:12 11/13/22 04:02 Room Air Coding Level of Care Code 49697 IN/OBS CONSULT LVL 4,60M Diagnoses Acute HFrEF (heart failure with reduced ejection fraction) I50.21 Atrial fibrillation with RVR I48.91 Cardiomyopathy I42.9 Pulmonary hypertension I27.20 Hypokalemia E87.6 Elevated troponin R77.8
[2022-11-13 15:24] LABS: Basophils # (auto) 0.02 K/uL (0-0.2); Basophils % (auto) 0.4 %; Eosinophils # (auto) 0.24 K/uL (0-0.50); Eosinophils % (auto) 4.4 %; Hematocrit (blood only) 46.6 % (42.0-52.0); Hemoglobin 15.4 g/dl (14.0-18.0); Immature Granulocytes # (auto) 0.06 K/uL (0.01-0.20); Immature Granulocytes % (auto) 1.1 %; Lymphocytes # (auto) 1.61 K/uL (1.2-3.4); Lymphocytes % (auto) 29.3 %; Mean Corpuscular Hemoglobin 28.9 pg (25.0-34.0); Mean Corpuscular Volume 87.4 fL (80.0-100.0); Mean Platelet Volume 10.4 fL (9.4-12.4); Monocytes # (auto) 0.89 K/uL (0.11-0.59); Monocytes % (auto) 16.2 %; Neutrophils # (auto) 2.67 K/uL (1.40-6.50); Neutrophils % (auto) 48.6 %; Platelet Count 201 K/uL (130-400); RDW Coefficient of Variation 16.4 % (11.5-14.5); Red Blood Count 5.33 M/uL (4.70-6.10); White Blood Count 5.49 K/ul (4.8-10.8)
[2022-11-13 15:34] LABS: BUN Creatinine Ratio 24.2 (10-20); Calcium 9.2 mg/dl (8.6-10.3); Creatinine Clr Calc Pharmacy 62.3 ml/min; Est GFR (African American) 54.3 ml/min; Est GFR (Non-African American) 46.9 ml/min; Potassium 4.7 mmol/L (3.5-5.1)
[2022-11-13 15:36] LABS: Albumin Level 3.7 gm/dl (3.4-5.0); Bilirubin Direct 0.4 mg/dl (0-0.2); Bilirubin,Total 1.5 mg/dl (0.2-1.0); Magnesium 2.2 mg/dl (1.7-2.4); Total Protein 6.7 gm/dl (6.0-8.3)
--- NOTE | 2022-11-13 21:06 | Electrocardiogram Report ---
Test Reason : Blood Pressure : / mmHG Vent. Rate : 068 BPM Atrial Rate : 000 BPM P-R Int : 000 ms QRS Dur : 110 ms QT Int : 420 ms P-R-T Axes : 000 -41 166 degrees QTc Int : 446 ms Atrial fibrillation Left axis deviation Septal infarct (cited on or before 21-OCT-2022) Abnormal ECG When compared with ECG of 22-OCT-2022 05:43, Vent. rate has decreased BY 35 BPM Questionable change in QRS duration Confirmed by Jay Lott ([id number]) on 11/13/2022 9:06:01 PM Referred By: REFERRED SELF Confirmed By:Jay Lott
== END 2022-11-13 16:44 | disposition home or self-care (01) | DRG 682 ==
LOC: ED 11:20 → SUATTDRO 13:14 → EDINP 13:14 → 2N 15:59